=== PATIENT | female | born 1960 | race African-American/Black ===

== ENCOUNTER 2024-06-11 11:12 | Inpatient (IN) | payer MEDICAID ==
[~2024-06-11] VITALS: Ht 160 cm; Wt 52.6 kg
[2024-06-12] VITALS (10 sets, daily range): BP systolic 103–118; BP diastolic 64–68; PULSE 70–88; RESP 17–70; TEMP 92.9–99.2; O2SAT 95–96
[2024-06-12] MEDS ORDERED: MORPHINE SULFATE INJ 2 MG/ml SYRG IV PRN (01:45)
[2024-06-12] MEDS ORDERED: NITROGLYCERIN 0.4 MG SL TAB SL PRN (01:45)
[2024-06-12] MEDS ORDERED: MIRT-93 PO (01:56)
[2024-06-12] MEDS ORDERED: LOSA-534 PO (01:56)
[2024-06-12] MEDS ORDERED: SEVE800T8 PO (01:56)
[2024-06-12] MEDS ORDERED: LATA0.008 EACHEYE (01:56)
[2024-06-12] MEDS ORDERED: FEXO-226 PO (01:56)
[2024-06-12] MEDS ORDERED: AMLO1TAB21 PO (01:56)
[2024-06-12] MEDS ORDERED: ACET-1881 PO (01:56)
[2024-06-12] MEDS ORDERED: APIX2.5T PO (01:56)
[2024-06-12] MEDS ORDERED: SENN-58 PO (01:56)
[2024-06-12] MEDS ORDERED: LACTCAP PO (01:56)
[2024-06-12] MEDS ORDERED: LOPE2CAP PO (01:56)
[2024-06-12] MEDS ORDERED: LORA-1121 PO (01:56)
[2024-06-12] MEDS ORDERED: TRAM50TA2 PO (01:56)
[2024-06-12] MEDS ORDERED: ATOR40TA52 PO (01:56)
[2024-06-12] MEDS ORDERED: CLON0.2D6 PO (01:56)
[2024-06-12] MEDS ORDERED: VANCOMYCIN PER PHARMACY 0 MG IV SCH (02:00)
[2024-06-12] MEDS ORDERED: DEXTROSE (50%) 50ML SYRG IV PRN (02:00)
--- NOTE | 2024-06-12 02:13 | DVHHPRES ---
History of Present Illness Resident Creating Document: SENAIT FRAGOSO RESIDENT History of Present Illness Patient is 64-year-old female who transfer from [facility] with past medical history of chronic CVA, hypertension, diabetes, chronic AFib, ESRD on hemodialysis, brought to the hospital for further evaluation of requiring cardiology evaluation for LOUIE and infectious disease evaluation. In [facility], patient was came with a chief: Fever, patient found to have bacteremia with a step epidermis, multiple repeat blood culture were done in consecutive days, all cultures came positive for bacteremia, treated with vancomycin and Invanz, however patient continued to have bacteremia therefore patient was transferred to [facility] for further evaluation possible requiring LOUIE and infectious disease evaluation. Patient was also on hemodialysis, initially access was achieved with right IJ however was not functioning, patient underwent right arm AV fistula, currently patient has left IJ access for possible dialysis, not underwent dialysis in last 5-7 days as per EMR. At the time of evaluation patient is alert however not oriented to time place and person, not able to provide information. All information obtained from EMR. No any other new complaints. PMH: Chronic CVA, hypertension, diabetes mellitus, chronic AFib, ESRD on hemodialysis Active medication at [facility]: Amlodipine 2.5 mg p.o. daily, losartan 50 mg p.o. b.i.d., ferrous sulfate 325 mg p.o. b.i.d., docusate 100 mg p.o. b.i.d., clonidine 0.2 mg p.o. q.12, Coreg 12.5 mg p.o. b.i.d., atorvastatin 40 mg p.o. once daily, Eliquis 2.5 mg p.o. b.i.d., insulin sliding scale, sevelamer 800 mg p.o. t.i.d., p.r.n. ondansetron and vancomycin. Allergies none Social history not able to obtain Family unknown Review of Systems Review of Systems Patient is alert however poor historian not able to provide proper history. \review of systems not able to obtain Allergies: Coded Allergies: NO KNOWN ALLERGIES (Unverified , 06/12/24) Medications Current Medications Medications Dose Ordered Sig/William Route Start Time Stop Time Status Last Admin Dose Admin Nitroglycerin 0.4 mg Q5MINP PRN SL 06/12/24 01:45 Morphine Sulfate 2 mg Q30M PRN IV 06/12/24 01:45 Meropenem 50 ml @ 17 mls/hr DAILY@2200 IV 06/12/24 22:00 Vancomycin HCl 0 ml @ 0 mls/hr UD IV 06/12/24 02:00 UNV Levetiracetam 500 mg BID PO 06/12/24 10:00 Atorvastatin Calcium 40 mg HS PO 06/12/24 22:00 Apixaban 2.5 mg BID PO 06/12/24 10:00 Losartan Potassium 50 mg DAILY PO 06/12/24 10:00 Amlodipine Besylate 2.5 mg DAILY PO 06/12/24 10:00 Diagnostic Test (Pha) 1 strip ACHS 06/12/24 07:00 Insulin Human Regular ACHS SC 06/12/24 07:00 Dextrose 50 ml UD PRN IV 06/12/24 02:00 Sevelamer HCl 800 mg TIDWM PO 06/12/24 08:00 Ondansetron HCl 4 mg Q4HPRN PRN IV 06/12/24 02:15 UNV Zirconium Oxide 10 gm TID PO 06/12/24 06:00 UNV Exam Vital Signs Vital Signs Date Time Temp Pulse Resp B/P (MAP) Pulse Ox O2 Delivery O2 Flow Rate FiO2 06/12/24 01:26 93.6 70 18 103/64 (77) 96 93.6 General Appearance: Alert, No acute distress HEENT: Atraumatic, PERRLA Respiratory: Clear to auscultation Cardiovascular: Regular rate, Normal S1, Normal S2 Abdominal: Normal bowel sounds Extremities: No clubbing, No cyanosis Skin: No rashes, No breakdown Neuro: Normal speech, Normal tone, Reflexes 2+ Psych/Mental Status: Other (Alert, protecting airway, not oriented to time place person) Assessment/Plan Assessment/Plan Staph epidermidis bacteremia Sepsis Acute metabolic encephalopathy Hypothermia Rule out infective endocarditis ESRD on hemodialysis Seizure Hyperkalemia Chronic AFib, no RVR Anemia of chronic disease Iron-deficiency Subclinical hypothyroidism Secondary coagulopathy Stool occult positive History of hypertension Diabetes mellitus type 2 -IV antibiotic with meropenem and vancomycin, repeat blood culture, infectious Disease consultation, cardiology consultation for possible LOUIE to evaluate infective endocarditis. -nephrology consultation for continuation of hemodialysis -given pulmonary vascular congestion, fluid has been not given. -upper extremity DVT results as pending, as per records patient had DVT in upper extremity with clot extending into heart, currently on Eliquis 2.5 mg b.i.d. for DVT and AFib. -AFib without RVR: Continue Eliquis 2.5 mg p.o. b.i.d., cautiously use, given low hemoglobin and stool positive -new onset seizure during past hospitalization, continue Keppra 500 mg p.o. b.i.d. -insulin sliding scale -continued home medication amlodipine 2.5 mg p.o. daily, losartan 50 mg p.o. daily, atorvastatin 40 mg p.o. daily. Goals of care not able to discussed given patient mental status, family were called not able to reach out. Plan discussed with Dr. Fonseca Plan discussed with: Patient, Other My Orders Orders - SENAIT FRAGOSO RESIDENT Procedure Category Date Status Time Admit ADMIT 06/12/24 Transmitted 01:44 Nitroglycerin PHA 06/12/24 In Process Sublingual (Ntrostat 01:45 Morphine Sulfate PHA 06/12/24 In Process Injection 01:45 Oxygen By Nasal RT 06/12/24 Transmitted Cannula 01:44 Stat Ekg For Chest [facility] 06/12/24 In Process Pain 01:44 Notify Md Of Changes [facility] 06/12/24 In Process From Base 01:44 Chocolate Finisher For [facility] 06/12/24 In Process 24 Hours 01:44 Emergency Dysrhythmia [facility] 06/12/24 In Process Protocol 01:44 Rhythm Strips Once [facility] 06/12/24 In Process Every Shift 01:44 B-Type Natriuretic LAB 06/12/24 Logged Peptide 01:44 Complete Blood Count LAB 06/12/24 Logged 01:44 Comprehensive LAB 06/12/24 Logged Metabolic Panel 01:44 Hemoglobin A1c LAB 06/12/24 Logged 01:44 Lipase LAB 06/12/24 Logged 01:44 PTPTT LAB 06/12/24 Logged 01:44 Thyroid Stimulating LAB 06/12/24 Logged Hormone 01:44 Troponin-I Hs LAB 06/12/24 Logged 01:44 Urinalysis LAB 06/12/24 Logged 01:44 Chest Xray 1 View XY 06/12/24 Logged 01:[address] 06/12/24 Logged 01:44 Pt Request For Service PT 06/12/24 Logged 01:44 Troponin-I Hs LAB 06/12/24 Logged 02:44 Troponin-I Hs LAB 06/12/24 Logged 04:44 Iron Panel LAB 06/12/24 Logged 01:44 * Cardiology Consult CONS 06/12/24 Transmitted 01:44 *Dr. [facility] CONS 06/12/24 Transmitted -[place] 01:44 * Infectious Berta- CONS 06/12/24 Transmitted [facility] 01:44 * Wound Consult CONS 06/12/24 Transmitted 01:48 * Dietary Consult CONS 06/12/24 Transmitted 01:48 * Certified Diabetes Educator CONS 06/12/24 Transmitted Consult 01:48 Admit ADMIT 06/12/24 Transmitted 01:48 Mrsa Screen PATRICIO 06/12/24 Logged 01:48 Meropenem 500mg Ivpb PHA 06/12/24 In Process (Merrem 500mg/Ns) 22:00 Meropenem 1gm Ivpb PHA 06/12/24 In Process (Merrem 1gm/ Ns) 02:00 Vancomycin Per PHA 06/12/24 Pending Pharmacy 02:00 Levetiracetam Tablet PHA 06/12/24 In Process (Keppra Tablet) 10:00 Renal DIET 06/12/24 Transmitted Standard(2gna,3gk,Lopho) Breakfast Atorvastatin (Lipitor) PHA 06/12/24 In Process 22:00 Bi Lat Upper Dvt US 06/12/24 Logged 01:48 Apixaban (Eliquis) PHA 06/12/24 In Process 10:00 Losartan Tablet PHA 06/12/24 In Process (Cozaar Tablet) 10:00 Amlodipine Tablet PHA 06/12/24 In Process (Norvasc Tablet) 10:00 Glucose Blood PHA 06/12/24 In Process (Accu-Chek Comfort 07:00 Insulin R (Human) PHA 06/12/24 In Process (Insulin R) 07:00 Dextrose 50% Syringe PHA 06/12/24 In Process 02:00 Blood Culture PATRICIO 06/12/24 Logged 01:53 Covid19 Antigen Diann LAB 06/12/24 Logged Ammonia LAB 06/12/24 Logged 01:53 Sevelamer (Renagel) PHA 06/12/24 In Process 08:00 Magnesium LAB 06/12/24 Logged 01:44 Phosphorus LAB 06/12/24 Logged 01:44 Electrocardigram EKG 06/12/24 Logged 01:55 Vancomycin 1.5gm/300ml PHA 06/12/24 In Process 02:15 Ondansetron Hcl PHA 06/12/24 Logged (Zofran) 02:15 Sodium Zirconium PHA 06/12/24 Logged Cyclosilicate 06:00 Date of Service: Jun 12, 2024 Billing Provider: TYRON FONSECA MD Common Visit Codes: [id number] INP/OBS CARE (HIGH) SENAIT FRAGOSO RESIDENT Jun 12, 2024 02:13 TYRON FONSECA MD Jun 12, 2024 10:12
[2024-06-12] MEDS ORDERED: ONDANSETRON HCL 4 MG/2 ML VIAL IV PRN (02:15)
[2024-06-12 03:31] LABS: Basophils # (auto) 0.1 10 ^3/uL (0-0.2); Basophils % (auto) 1.3 % (0.0-2.0); Eosinophils # (auto) 0.3 10 ^3/uL (0-0.8); Eosinophils % (auto) 4.7 % (0.0-7.0); Hemoglobin 7.9 g/dL (12.2-16.2); Lymphocytes # (auto) 1.4 10 ^3/uL (0.4-5.4); Lymphocytes % (auto) 20.5 % (10.0-50.0); Mean Corpuscular Hemoglobin 28.8 pg (28.0-32.0); Mean Corpuscular Hgb Conc. 31.6 g/dL (32.0-36.0); Mean Corpuscular Volume 91.1 fL (80.0-100.0); Monocytes # (auto) 0.4 10 ^3/uL (0-1.3); Monocytes % (auto) 6.2 % (0.0-12.0); Neutrophils # (auto) 4.6 10 ^3/uL (1.6-8.6); Neutrophils % (auto) 67.3 % (37.0-80.0); Nucleated Red Blood Cells % 0.2 %; Platelet Count (auto) 132 10^3/uL (140-450); Red Blood Cells 2.74 10^6/uL (4.0-5.20); Red Cell Distribution Width 16.7 % (11.8-14.3); White Blood Cell 6.8 10^3/uL (4.4-10.8)
[2024-06-12 03:43] LABS: Alkaline Phosphatase 99 U/L (46-116); Anion Gap 9 (5-15); BUN/Creatinine Ratio 7.8 (10.0-20.0); Carbon Dioxide 24 mmol/L (20-31); Glucose 80 mg/dL (74-106); Lipase 22 U/L (12-53); Magnesium 2.6 mg/dL (1.6-2.6); Sodium 140 mmol/L (136-145)
[2024-06-12 03:44] LABS: INR 1.18 (0.9-1.15); Partial Thromboplastin Time 38.9 SEC (24.5-34.5); Prothrombin Time 12.3 sec (9.3-11.8); Total Protein 5.8 g/dL (5.7-8.2)
[2024-06-12 03:45] LABS: % Iron Saturation 44.8 % (15-50)
[2024-06-12 03:49] LABS: Blood Urea Nitrogen 68 mg/dL (9-23); Chloride 107 mmol/L (98-107); Potassium 5.4 mmol/L (3.5-5.1)
[2024-06-12 03:50] LABS: Alanine Aminotransferase < 9 U/L (7-40); Albumin 2.4 g/dL (3.2-4.8); Bilirubin, Total < 0.2 mg/dL (0.2-1.0); Calcium 8.6 mg/dL (8.7-10.4); Phosphorus 6.2 mg/dL (2.4-5.1)
[2024-06-12] MEDS: levETIRAcetam 500 MG TAB PO ONE (03:59)
[2024-06-12] MEDS: MEROPENEM 1GM IVPB 50 ML IV ONE (03:59)
[2024-06-12 04:25] LABS: Aspartate Aminotransferase 16 U/L (13-40)
--- NOTE | 2024-06-12 05:49 | DVH ---
CHEST RADIOGRAPH Indication: sepsis Technique: Single frontal view of the chest was obtained COMPARISON: 06/11/2024 FINDINGS: Lines and Tubes: Right HERO graft and left central venous catheter in satisfactory position. Lungs: Congestion Pleura: No effusion. No pneumothorax. Cardiomediastinal contours: Cardiomegaly Bones: Unremarkable IMPRESSION: Mild congestion.
[2024-06-12] MEDS: SODIUM ZIRCONIUM CYCL 10 GM PAK PO SCH (05:59)
[2024-06-12] MEDS ORDERED: SODIUM ZIRCONIUM CYCL 10 GM PAK PO PRN (06:00)
[2024-06-12 06:01] LABS: COVID19 ANTIGEN SOFIA FIA NEGATIVE (NEGATIVE); Rapid Influenza A Negative (Negative); Rapid Influenza B Negative (Negative)
[2024-06-12] MEDS: InsuLIN REG 1unit/0.01ml Soln (100units/ml) SC SCH (06:01)
[2024-06-12] MEDS: ACCU-CHEK COMFORT CURVE STRIP VI SCH (06:19)
[2024-06-12 07:27] LABS: Free T3 1.53 pg/mL (2.3-4.2); Free T4 (Free Thyroxine) 0.97 ng/dL (0.89-1.76)
[2024-06-12] MEDS: SEVELAMER 800 MG TAB PO SCH (08:00)
--- NOTE | 2024-06-12 09:29 | DVH ---
EXAM: CT HEAD WITHOUT CONTRAST HISTORY: altered mental status COMPARISON: None TECHNIQUE: Axial images were obtained and reformatted in coronal and sagittal planes. All CT scans at this medical facility are performed using dose modulation techniques as appropriate t o a performed exam including the following: Automated exposure control was utilized; adjustment of th e MA and/or KV according to patient size; and use of iterative reconstruction technique. CT Dose: CTDI volume is 48.54 mGy. Dose-length product is 817.63 mGy*cm FINDINGS: Supratentorial Region: Small area of altered signal in the left occipital lobe central hypoattenuatio n and peripheral gyriform ribbonlike hyperdensity. Old infarcts are seen in the right frontal topete radiata and centrum semiovale. A small old infarct with encephalomalacia noted in the right upper pa rietal lobe. Confluent white matter hypoattenuating foci are noted bilaterally, which typically refle ct chronic microvascular ischemic changes. Posterior Fossa: No acute abnormality. Brainstem: Unremarkable. Sellar/Suprasellar Region: Unremarkable. Ventricles, Cisterns, Sulci: Mildly prominent reflecting volume loss. Small amount of hemorrhagic ma terial in the occipital horn of the left lateral ventricle can not be ruled out. Orbits: Unremarkable. Paranasal Sinuses: Unremarkable. Mastoid Air Cells: Small left mastoid effusion. Vasculature: Intracranial arterial calcified plaque formation noted. Bones/Soft Tissues: No acute abnormality. Other: None. IMPRESSION: 1. Age-indeterminate left occipital infarcts with hemorrhagic transformation versus laminar necrosis. Recommend further evaluation with MRI. Small amount of hemorrhagic material in the occipital horn o f the left lateral ventricle can not be ruled out. 2. Old infarcts are seen in the right frontoparietal lobes. 3. Moderate global cortical atrophy and chronic microvascular ischemic changes. 4. Atherosclerotic calcification of the intracranial arteries noted. 5. Small left mastoid effusion.
--- NOTE | 2024-06-12 09:33 | DVHINCON2 ---
[facility] 06/12/24 0933: Date Seen: Jun 12, 2024 Referring Physician MD Esther Reason for Consultation Staph epidermidis bacteremia rule out subacute endocarditis History of Present Illness This is a 64-year-old female who presented transferred from [facility] for higher level of care. At time of assessment the patient was found A&O x2. Most of the information retrieved from records. It appears the patient presented to the aforementioned facility with complaints of pyrexia and found with persistent bacteremia on blood cultures with Staph epidermidis for which she was treated with vancomycin and Invanz. She was transferred to our facility for Infectious Disease evaluation and possible need of a transesophageal echocardiogram to rule out subacute infective endocarditis. The patient is end- stage renal disease on hemodialysis with an initial access achieved through the right IJ which malfunctioned and subsequent renal replacement therapy via left subclavian dialysis catheter and eventual right upper arm AV fistula. Significant medical history includes paroxysmal atrial fibrillation on low-dose Eliquis, diabetes mellitus type 2, history of CVA, hypertension, dyslipidemia, anemia, and ESRD on HD. Past Medical History Past medical history reviewed. No other significant than mentioned above. Past Surgical History Right/left IJ Right upper arm AV fistula Family History: Patient reports no known family medical history. Family History Unable to obtain family history at this time. Social History Unable to obtain social history at this time. Allergies: Coded Allergies: NO KNOWN ALLERGIES (Unverified , 06/12/24) Home Meds Reported Medications Tramadol Hcl (Tramadol Hcl) 50 Mg Tab, 50 MG PO Q6HP PRN for PAIN SCALE 1 THRU 6, MG 06/12/24 Lorazepam (ATIVAN TABLET) 0.5 Mg Tb, 1 TAB PO TID PRN for ANXIETY, #90 TAB 06/12/24 Latanoprost (LATANOPROST) 0.005 % Rachel, 1 DROP EACHEYE QPM, #7.5 ML 3 Refills 06/12/24 Senna (Senokot) 8.6 Mg Tab, 1 TAB PO BID, #40 TAB 06/12/24 Losartan Potassium (Losartan Potassium) 50 Mg Tab, 50 MG PO DAILY for 30 Days, MG 06/12/24 Loperamide Hcl (Loperamide Hcl) 2 Mg Cap, 2 MG PO, MG 06/12/24 Mirtazapine (Remeron) 15 Mg Tab, 1 TAB PO QPM, #30 TAB 1 Refill 06/12/24 Atorvastatin Calcium (ATORVASTATIN CALCIUM) 40 Mg Tab, 1 TAB PO DAILY, #30 TAB 5 Refills 06/12/24 Sevelamer Carbonate (Renvela) 800 Mg Tab, 800 MG PO, TAB 06/12/24 Clonidine Hydrochloride (Clonidine Hcl) 0.2 Mg/24 Hr Dis, 0.2 MG PO QWEEKLY for 30 Days, MG 06/12/24 Amlodipine Besylate (Amlodipine Besylate) 2.5 Mg Tab, 1 TAB PO DAILY, #30 TAB 5 Refills 06/12/24 Lactobacillus (Acidophilus Probiotic) 1 Mg Tab, 1 MG PO, TAB 06/12/24 Fexofenadine Hcl (Fexofenadine Hcl) 60 Mg Tab, 60 MG PO BID for 30 Days, MG 06/12/24 Apixaban Base (ELIQUIS) 2.5 Mg Tab, 2.5 MG PO BID, TAB 06/12/24 Acetaminophen (Acetaminophen) 325 Mg Tab, 650 MG PO Q6HP PRN for MILD PAIN for 30 Days, MG 0 Refills 06/12/24 Home Meds Home medications reviewed. Current Medications Current Medications Medications (Trade) Dose Ordered Sig/William Route PRN Reason Start Time Stop Time Status Last Admin Nitroglycerin (Ntrostat Sublingual) 0.4 mg Q5MINP PRN SL FOR CHEST PAIN 06/12/24 01:45 Morphine Sulfate 2 mg Q30M PRN IV FOR CHEST PAIN 06/12/24 01:45 Meropenem 50 ml @ 17 mls/hr DAILY@2200 IV 06/12/24 22:00 Vancomycin HCl 0 ml @ 0 mls/hr UD IV 06/12/24 02:00 UNV Levetiracetam (Keppra Tablet) 500 mg BID PO 06/12/24 10:00 Atorvastatin Calcium (Lipitor) 40 mg HS PO 06/12/24 22:00 Apixaban (Eliquis) 2.5 mg BID PO 06/12/24 10:00 Losartan Potassium (Cozaar Tablet) 50 mg DAILY PO 06/12/24 10:00 Amlodipine Besylate (Norvasc Tablet) 2.5 mg DAILY PO 06/12/24 10:00 Diagnostic Test (Pha) (Accu-Chek Comfort Curve T) 1 strip ACHS 06/12/24 07:00 06/12/24 06:19 Insulin Human Regular (InsuLIN R) ACHS SC 06/12/24 07:00 Dextrose 50 ml UD PRN IV Blood Sugar LESS THAN 60 06/12/24 02:00 Sevelamer HCl (Renagel) 800 mg TIDWM PO 06/12/24 08:00 Ondansetron HCl (Zofran) 4 mg Q4HPRN PRN IV NAUSEA / VOMITING 06/12/24 02:15 Zirconium Oxide (Lokelma) 10 gm TID PRN PO HYPERKALEMIA 06/12/24 06:00 06/12/24 05:22 DC Zirconium Oxide (Lokelma) 10 gm TID PO 06/12/24 05:30 06/14/24 05:59 06/12/24 05:59 Ferrous Sulfate 325 mg ONCE PO 06/12/24 08:00 UNV Review of Systems Constitutional: Generalized weakness, anorexia Ears, Nose, & Throat: No symptom reported Eyes: No symptom reported Neurological: ALOC Pulmonary/Respiratory: No symptom reported Cardiovascular: No symptom reported Gastrointestinal: No symptom reported Genitourinary: No symptom reported Musculoskeletal: No symptom reported Skin: No symptom reported Psychiatric: No symptom reported Endocrine: No symptom reported Hemotologic/Lymphatic: No symptom reported Vital Signs Vital Signs Date Time Temp Pulse Resp B/P (MAP) Pulse Ox O2 Delivery O2 Flow Rate FiO2 06/12/24 06:15 93.7 93.7 06/12/24 05:00 76 17 110/67 (81) 96 06/12/24 01:26 Room Air* 0 21 Physical Exam General Appearance: Chronically ill. A&O x2. In no acute distress Head Exam: Normal inspection Neck Exam: Normal inspection. Non-tender. Normal alignment Pulmonary/Respiratory: Chest non-tender. Imaged bilateral breath sounds Cardiovascular/Chest: Regular rate and rhythm. S1, S2. Sinus rhythm with prolonged QTC and. No murmurs. No JVD. Peripheral Pulses: 2+ Radial (R). 2+ Radial (L). 2+ Pedal (R). 2+ Pedal (L) Abdominal Exam: Normal bowel sounds. Soft. Ankle Exam: Negative ankle edema Lower extremities: Negative lower extremity edema Neuro/Mental Status: A&O x2. Alert Thoughts/Psych: Unable to assess at this time Appearance: In no acute distress Skin Exam: Normal inspection. Normal color. Warm. Dry Labs/Diagnostic Data Labs Test 06/12/24 07:00 06/12/24 05:58 06/12/24 04:00 06/12/24 02:50 Range/Units Troponin I High Sensitivity 7 </=34 ng/L POC Glucose 106 70-106 mg/dl Influenza Type A Antigen Negative Negative Influenza Type B Antigen Negative Negative SARS-CoV-2 Antigen (Rapid) Negative NEGATIVE White Blood Count 6.8 4.4-10.8 10^3/uL Red Blood Count 2.74 L 4.0-5.20 10^6/uL Hemoglobin 7.9 L 12.2-16.2 g/dL Hematocrit 25.0 L 36.0-46.0 % Mean Corpuscular Volume 91.1 80.0-100.0 fL Mean Corpuscular Hemoglobin 28.8 28.0-32.0 pg Mean Corpuscular Hemoglobin Concent 31.6 L 32.0-36.0 g/dL Red Cell Distribution Width 16.7 H 11.8-14.3 % Platelet Count 132 L 140-450 10^3/uL Mean Platelet Volume 9.3 6.9-10.8 fL Neutrophils (%) (Auto) 67.3 37.0-80.0 % Lymphocytes (%) (Auto) 20.5 10.0-50.0 % Monocytes (%) (Auto) 6.2 0.0-12.0 % Eosinophils (%) (Auto) 4.7 0.0-7.0 % Basophils (%) (Auto) 1.3 0.0-2.0 % Neutrophils # (Auto) 4.6 1.6-8.6 10 ^3/uL Lymphocytes # (Auto) 1.4 0.4-5.4 10 ^3/uL Monocytes # (Auto) 0.4 0-1.3 10 ^3/uL Eosinophils # (Auto) 0.3 0-0.8 10 ^3/uL Basophils # (Auto) 0.1 0-0.2 10 ^3/uL Nucleated Red Blood Cells 0.2 % Prothrombin Time 12.3 H 9.3-11.8 sec Prothrombin Time INR 1.18 H 0.9-1.15 Activated Partial Thromboplast Time 38.9 H 24.5-34.5 SEC Sodium Level 140 136-145 mmol/L Potassium Level 5.4 H 3.5-5.1 mmol/L Chloride Level 107 98-107 mmol/L Carbon Dioxide Level 24 20-31 mmol/L Anion Gap 9 5-15 Blood Urea Nitrogen 68 H 9-23 mg/dL Creatinine 8.68 H 0.550-1.02 mg/dL Glomerular Filtration Rate Calc 5 >90 mL/min BUN/Creatinine Ratio 7.8 L 10.0-20.0 Serum Glucose 80 74-106 mg/dL Hemoglobin A1c 5.6 <5.7 % A1C Calcium Level 8.6 L 8.7-10.4 mg/dL Phosphorus Level 6.2 H 2.4-5.1 mg/dL Magnesium Level 2.6 1.6-2.6 mg/dL Iron Level 56 50-170 ug/dL Total Iron Binding Capacity 125 L 250-425 ug/dL Percent Iron Saturation 44.8 15-50 % Total Bilirubin < 0.2 L 0.2-1.0 mg/dL Aspartate Amino Transferase (AST) 16 13-40 U/L Alanine Aminotransferase (ALT) < 9 7-40 U/L Alkaline Phosphatase 99 46-116 U/L Ammonia 15 11-32 umol/L B-Type Natriuretic Peptide 288.82 0-100 pg/mL Total Protein 5.8 5.7-8.2 g/dL Albumin 2.4 L 3.2-4.8 g/dL Lipase 22 12-53 U/L Thyroid Stimulating Hormone (TSH) 8.89 H 0.55-4.78 uIU/mL Free Thyroxine (T4) Calculated 0.97 0.89-1.76 ng/dL Free Triiodothyronine (T3) pg/mL 1.53 L 2.3-4.2 pg/mL Assessment Sepsis/bacteremia rule out subacute endocarditis Paroxysmal atrial fibrillation, stage III, now NSR Nonocclusive/superficial thrombus to the right upper extremity Acute on chronic anemia status post 2 unit PRBC/Hemoccult positive Acute metabolic encephalopathy Subclinical hypothyroidism HX of CVA on antiplatelet therapy Dyslipidemia Diabetes mellitus type 2 ESRD on HD Plan/Recommendation (Dr. Baker) The patient with bacteremia has been scheduled for a transesophageal echocardiogram at first available on 06/14/2024. Attempted to call next of kin/son Celio Palma with no success . In the meantime, continue blood cultures, antibiotic therapy, an infectious disease consultation. The patient is currently on low-dose Eliquis for reported history of atrial fibrillation, currently in a sinus rhythm. Obtain T&S given recent history of acute on chronic anemia with positive FOBT undergoing blood transfusions. Monitor ECG changes and notify. Thank you for allowing us to participate in this patient's care. Please call if you have any questions or concerns. This medical document was created using an electronic medical record system with voice recognition software and computerized dictation system. Although this document has been carefully reviewed, there might still be some phonetic and typographical errors. Occasional wrong-word or ``sound-alike substitutions may have occurred due to the inherent limitations of voice recognition software. These areas are purely typographical due to imperfections of the software programs and do not reflect any compromise in the patient's medical care. Please read the chart carefully and recognize, using context, where these substitutions have occurred. Plan discussed with: Patient, Other NYHA Physical activity limitations: NA Date of Service: Jun 12, 2024 Billing Provider: [facility] Cardiology Common Codes: [id number] INP/OBS CARE (High) AMY BAKER MD 06/12/24 1421: Family History: Patient reports no known family medical history. Allergies: Coded Allergies: NO KNOWN ALLERGIES (Unverified , 06/12/24) Home Meds Reported Medications Tramadol Hcl (Tramadol Hcl) 50 Mg Tab, 50 MG PO Q6HP PRN for PAIN SCALE 1 THRU 6, MG 06/12/24 Lorazepam (ATIVAN TABLET) 0.5 Mg Tb, 1 TAB PO TID PRN for ANXIETY, #90 TAB 06/12/24 Latanoprost (LATANOPROST) 0.005 % Rachel, 1 DROP EACHEYE QPM, #7.5 ML 3 Refills 06/12/24 Senna (Senokot) 8.6 Mg Tab, 1 TAB PO BID, #40 TAB 06/12/24 Losartan Potassium (Losartan Potassium) 50 Mg Tab, 50 MG PO DAILY for 30 Days, MG 06/12/24 Loperamide Hcl (Loperamide Hcl) 2 Mg Cap, 2 MG PO, MG 06/12/24 Mirtazapine (Remeron) 15 Mg Tab, 1 TAB PO QPM, #30 TAB 1 Refill 06/12/24 Atorvastatin Calcium (ATORVASTATIN CALCIUM) 40 Mg Tab, 1 TAB PO DAILY, #30 TAB 5 Refills 06/12/24 Sevelamer Carbonate (Renvela) 800 Mg Tab, 800 MG PO, TAB 06/12/24 Clonidine Hydrochloride (Clonidine Hcl) 0.2 Mg/24 Hr Dis, 0.2 MG PO QWEEKLY for 30 Days, MG 06/12/24 Amlodipine Besylate (Amlodipine Besylate) 2.5 Mg Tab, 1 TAB PO DAILY, #30 TAB 5 Refills 06/12/24 Lactobacillus (Acidophilus Probiotic) 1 Mg Tab, 1 MG PO, TAB 06/12/24 Fexofenadine Hcl (Fexofenadine Hcl) 60 Mg Tab, 60 MG PO BID for 30 Days, MG 06/12/24 Apixaban Base (ELIQUIS) 2.5 Mg Tab, 2.5 MG PO BID, TAB 06/12/24 Acetaminophen (Acetaminophen) 325 Mg Tab, 650 MG PO Q6HP PRN for MILD PAIN for 30 Days, MG 0 Refills 06/12/24 Plan/Recommendation pt needs neuro eval and assessment for abnormal head ct consider LOUIE once more stable cont abx ID consult pending poor prognosis Plan discussed with: Other (rn) MAY CARSON Jun 12, 2024 09:33 AMY BAKER MD Jun 12, 2024 14:21
[2024-06-12] MEDS ORDERED: APIXABAN 2.5 MG TAB PO SCH (10:00)
--- NOTE | 2024-06-12 10:47 | DVHPN2 ---
Reviewed: Care Plan, H&P, Labs, Medications, Previous Orders, Radiology Changes from previous H/P or p: No Changes Objective Vitals Vital Signs Date Time Temp Pulse Resp B/P (MAP) Pulse Ox O2 Delivery O2 Flow Rate FiO2 06/12/24 09:00 94.3 71 18 115/68 (84) 96 94.3 06/12/24 01:26 Room Air* 0 21 Intake/Output Intake and Output 06/12/24 07:00 Intake Total 350 ml Output Total 0 ml Balance 350 ml Intake Oral 300 ml IV Total 50 ml Output Urine Total 0 ml Medications Current Medications Medications Dose Ordered Sig/William Route Start Time Stop Time Status Last Admin Dose Admin Nitroglycerin 0.4 mg Q5MINP PRN SL 06/12/24 01:45 Morphine Sulfate 2 mg Q30M PRN IV 06/12/24 01:45 Meropenem 50 ml @ 17 mls/hr DAILY@2200 IV 06/12/24 22:00 Vancomycin HCl 0 ml @ 0 mls/hr UD IV 06/12/24 02:00 Levetiracetam 500 mg BID PO 06/12/24 10:00 Atorvastatin Calcium 40 mg HS PO 06/12/24 22:00 Losartan Potassium 50 mg DAILY PO 06/12/24 10:00 Amlodipine Besylate 2.5 mg DAILY PO 06/12/24 10:00 Diagnostic Test (Pha) 1 strip ACHS 06/12/24 07:00 06/12/24 06:19 1 STRIP Insulin Human Regular ACHS SC 06/12/24 07:00 Dextrose 50 ml UD PRN IV 06/12/24 02:00 Sevelamer HCl 800 mg TIDWM PO 06/12/24 08:00 Ondansetron HCl 4 mg Q4HPRN PRN IV 06/12/24 02:15 Zirconium Oxide 10 gm TID PO 06/12/24 05:30 06/14/24 05:59 06/12/24 05:59 10 GM Laboratory Results Laboratory Tests 06/12/24 02:50 Chemistry Test 06/12/24 02:50 Albumin 2.4 g/dL (3.2-4.8) L Calcium Level 8.6 mg/dL (8.7-10.4) L Magnesium Level 2.6 mg/dL (1.6-2.6) Phosphorus Level 6.2 mg/dL (2.4-5.1) H Total Protein 5.8 g/dL (5.7-8.2) Coagulation Test 06/12/24 02:50 Prothrombin Time 12.3 sec (9.3-11.8) H Prothrombin Time INR 1.18 (0.9-1.15) H Activated Partial Thromboplast Time 38.9 SEC (24.5-34.5) H Lipid panel Test 06/12/24 02:50 Lipase 22 U/L (12-53) Cardiac Markers Test 06/12/24 02:50 B-Type Natriuretic Peptide 288.82 pg/mL (0-100) LFT Test 06/12/24 02:50 Alanine Aminotransferase (ALT) < 9 U/L (7-40) Alkaline Phosphatase 99 U/L (46-116) Aspartate Amino Transferase (AST) 16 U/L (13-40) Total Bilirubin < 0.2 mg/dL (0.2-1.0) L HgA1c, TSH Test 06/12/24 02:50 Hemoglobin A1c 5.6 % A1C (<5.7) Thyroid Stimulating Hormone (TSH) 8.89 uIU/mL (0.55-4.78) H Labs and/or images reviewed: Labs reviewed by me, Image(s) reviewed by me Assessment/Plan Assessment/Plan Patient was transferred from [facility] Sepsis/bacteremia rule out subacute endocarditis cardiology consult appreciated meropenem vancomycin, blood cultures pending Paroxysmal atrial fibrillation, stage III, now NSR, on low-dose failure Nonocclusive/superficial thrombus to the right upper extremity Acute on chronic anemia status post 2 unit PRBC/Hemoccult positive Acute metabolic encephalopathy Subclinical hypothyroidism HX of CVA on antiplatelet therapy age-indeterminate left occipital infarct Dyslipidemia Diabetes mellitus type 2 ESRD on HD Time spent 70 minutes Advanced care planning time 20 minutes Patient is full code MRI brain could not be done as the patient and her son unaware of whether she has any metal in the body Reviewed blood culture report from [facility]; It shows staph epidermidis which possibly is contamination Plan discussed with: Patient Date of Service: Jun 12, 2024 Billing Provider: JOSÉ HAWLEY MD Common Visit Codes: [id number] CARE 30-74 MIN JOSÉ HAWLEY MD Jun 12, 2024 10:47
[2024-06-12] MEDS: levETIRAcetam 500 MG TAB PO SCH (11:14)
[2024-06-12] MEDS: FERROUS SULFATE 325mg EC TAB PO ONE (11:14)
[2024-06-12] MEDS: LOSARTAN POTASSIUM 50 MG TAB PO SCH (11:15)
[2024-06-12] MEDS: amLODIPine BESYLATE 5 MG TAB PO SCH (11:16)
--- NOTE | 2024-06-12 11:41 | DVH ---
Bilateral upper extremity venous duplex Clinical History: DVT Comparison: None Findings: Duplex Doppler evaluation of the deep venous systems of the bilateral extremity from the common femor al veins to the popliteal veins including color Doppler and spectral/pulsed waveform analysis was per formed. Left internal jugular, subclavian, axillary, brachial, basilic, cephalic and radial veins demonstrate no evidence for deep vein thrombosis. The right internal jugular, subclavian veins demonstrate no filling defect. There is thrombus within the right axillary vein with no flow seen on one of the the color flow images, image 17. There is thr ombosis of the right upper extremity AV graft. The right radial and ulnar veins demonstrate color fl ow. There is pseudo aneurysmal formation with eccentric mural wall thrombus at the anastomotic site. Impression: 1. Findings consistent with thrombosis of the right upper extremity AV graft which likely extends to th e right axillary vein. Recommend vascular surgery consultation for further evaluation.
--- NOTE | 2024-06-12 15:40 | DVHINCON2 ---
Date of service: Jun 12, 2024 Reason for Consultation ESRD History of Present Illness 64 years old female with past medical history of ESRD on dialysis, diabetes, hypertension, CVA, AFib, presented with chief complaints fever to [facility] found to be persistently bacteremic with staph epidermidis patient transferred here for possible LOUIE and ID evaluation patient is currently being dialyzed via left IJ CVC patient missed several dialysis treatments patient is currently in no acute distress Past Medical History per hpi Allergies: Coded Allergies: NO KNOWN ALLERGIES (Unverified , 06/12/24) Home Meds Reported Medications Tramadol Hcl (Tramadol Hcl) 50 Mg Tab, 50 MG PO Q6HP PRN for PAIN SCALE 1 THRU 6, MG 06/12/24 Lorazepam (ATIVAN TABLET) 0.5 Mg Tb, 1 TAB PO TID PRN for ANXIETY, #90 TAB 06/12/24 Latanoprost (LATANOPROST) 0.005 % Rachel, 1 DROP EACHEYE QPM, #7.5 ML 3 Refills 06/12/24 Senna (Senokot) 8.6 Mg Tab, 1 TAB PO BID, #40 TAB 06/12/24 Losartan Potassium (Losartan Potassium) 50 Mg Tab, 50 MG PO DAILY for 30 Days, MG 06/12/24 Loperamide Hcl (Loperamide Hcl) 2 Mg Cap, 2 MG PO, MG 06/12/24 Mirtazapine (Remeron) 15 Mg Tab, 1 TAB PO QPM, #30 TAB 1 Refill 06/12/24 Atorvastatin Calcium (ATORVASTATIN CALCIUM) 40 Mg Tab, 1 TAB PO DAILY, #30 TAB 5 Refills 06/12/24 Sevelamer Carbonate (Renvela) 800 Mg Tab, 800 MG PO, TAB 06/12/24 Clonidine Hydrochloride (Clonidine Hcl) 0.2 Mg/24 Hr Dis, 0.2 MG PO QWEEKLY for 30 Days, MG 06/12/24 Amlodipine Besylate (Amlodipine Besylate) 2.5 Mg Tab, 1 TAB PO DAILY, #30 TAB 5 Refills 06/12/24 Lactobacillus (Acidophilus Probiotic) 1 Mg Tab, 1 MG PO, TAB 06/12/24 Fexofenadine Hcl (Fexofenadine Hcl) 60 Mg Tab, 60 MG PO BID for 30 Days, MG 06/12/24 Apixaban Base (ELIQUIS) 2.5 Mg Tab, 2.5 MG PO BID, TAB 06/12/24 Acetaminophen (Acetaminophen) 325 Mg Tab, 650 MG PO Q6HP PRN for MILD PAIN for 30 Days, MG 0 Refills 06/12/24 Current Medications Current Medications Medications (Trade) Dose Ordered Sig/William Route PRN Reason Start Time Stop Time Status Last Admin Nitroglycerin (Ntrostat Sublingual) 0.4 mg Q5MINP PRN SL FOR CHEST PAIN 06/12/24 01:45 Morphine Sulfate 2 mg Q30M PRN IV FOR CHEST PAIN 06/12/24 01:45 Meropenem 50 ml @ 17 mls/hr DAILY@2200 IV 06/12/24 22:00 Vancomycin HCl 0 ml @ 0 mls/hr UD IV 06/12/24 02:00 Levetiracetam (Keppra Tablet) 500 mg BID PO 06/12/24 10:00 06/12/24 11:14 Atorvastatin Calcium (Lipitor) 40 mg HS PO 06/12/24 22:00 Apixaban (Eliquis) 2.5 mg BID PO 06/12/24 10:00 06/12/24 09:37 DC Losartan Potassium (Cozaar Tablet) 50 mg DAILY PO 06/12/24 10:00 06/12/24 11:15 Amlodipine Besylate (Norvasc Tablet) 2.5 mg DAILY PO 06/12/24 10:00 06/12/24 11:16 Diagnostic Test (Pha) (Accu-Chek Comfort Curve T) 1 strip ACHS 06/12/24 07:00 06/12/24 11:37 Insulin Human Regular (InsuLIN R) ACHS SC 06/12/24 07:00 Dextrose 50 ml UD PRN IV Blood Sugar LESS THAN 60 06/12/24 02:00 Sevelamer HCl (Renagel) 800 mg TIDWM PO 06/12/24 08:00 06/12/24 11:12 Ondansetron HCl (Zofran) 4 mg Q4HPRN PRN IV NAUSEA / VOMITING 06/12/24 02:15 Zirconium Oxide (Lokelma) 10 gm TID PRN PO HYPERKALEMIA 06/12/24 06:00 06/12/24 05:22 DC Zirconium Oxide (Lokelma) 10 gm TID PO 06/12/24 05:30 06/14/24 05:59 06/12/24 15:08 Family History: Patient reports no known family medical history. Review of Systems poor historian H&P Exam Vital Signs/I&O Vital Sign Date Time Temp Pulse Resp B/P (MAP) Pulse Ox O2 Delivery O2 Flow Rate FiO2 06/12/24 12:32 96.9 73 18 112/65 (81) 95 96.9 06/12/24 01:26 Room Air* 0 21 Intake and Output 06/11/24 06/12/24 19:00 07:00 Intake Total 350 ml Output Total 0 ml Balance 350 ml Intake Oral 300 ml IV Total 50 ml Output Urine Total 0 ml Physical Exam General-not in any distress HEENT-normocephalic, Respiratory-fair air entry bilateral, no rhonchi, no wheeze [id number] heard, Abdominal-soft, nontender, nondistended Musculoskeletal-positive pedal edema, no calf tenderness Labs/Diagnostic Data Labs/Diagnostic Data Laboratory Tests Test 06/12/24 11:36 06/12/24 07:00 06/12/24 05:58 06/12/24 04:07 Range/Units POC Glucose 85 106 70-106 mg/dl Troponin I High Sensitivity 7 8 </=34 ng/L Test 06/12/24 04:00 06/12/24 02:50 Range/Units Influenza Type A Antigen Negative Negative Influenza Type B Antigen Negative Negative SARS-CoV-2 Antigen (Rapid) Negative NEGATIVE White Blood Count 6.8 4.4-10.8 10^3/uL Red Blood Count 2.74 L 4.0-5.20 10^6/uL Hemoglobin 7.9 L 12.2-16.2 g/dL Hematocrit 25.0 L 36.0-46.0 % Mean Corpuscular Volume 91.1 80.0-100.0 fL Mean Corpuscular Hemoglobin 28.8 28.0-32.0 pg Mean Corpuscular Hemoglobin Concent 31.6 L 32.0-36.0 g/dL Red Cell Distribution Width 16.7 H 11.8-14.3 % Platelet Count 132 L 140-450 10^3/uL Mean Platelet Volume 9.3 6.9-10.8 fL Neutrophils (%) (Auto) 67.3 37.0-80.0 % Lymphocytes (%) (Auto) 20.5 10.0-50.0 % Monocytes (%) (Auto) 6.2 0.0-12.0 % Eosinophils (%) (Auto) 4.7 0.0-7.0 % Basophils (%) (Auto) 1.3 0.0-2.0 % Neutrophils # (Auto) 4.6 1.6-8.6 10 ^3/uL Lymphocytes # (Auto) 1.4 0.4-5.4 10 ^3/uL Monocytes # (Auto) 0.4 0-1.3 10 ^3/uL Eosinophils # (Auto) 0.3 0-0.8 10 ^3/uL Basophils # (Auto) 0.1 0-0.2 10 ^3/uL Nucleated Red Blood Cells 0.2 % Prothrombin Time 12.3 H 9.3-11.8 sec Prothrombin Time INR 1.18 H 0.9-1.15 Activated Partial Thromboplast Time 38.9 H 24.5-34.5 SEC Sodium Level 140 136-145 mmol/L Potassium Level 5.4 H 3.5-5.1 mmol/L Chloride Level 107 98-107 mmol/L Carbon Dioxide Level 24 20-31 mmol/L Anion Gap 9 5-15 Blood Urea Nitrogen 68 H 9-23 mg/dL Creatinine 8.68 H 0.550-1.02 mg/dL Glomerular Filtration Rate Calc 5 >90 mL/min BUN/Creatinine Ratio 7.8 L 10.0-20.0 Serum Glucose 80 74-106 mg/dL Hemoglobin A1c 5.6 <5.7 % A1C Calcium Level 8.6 L 8.7-10.4 mg/dL Phosphorus Level 6.2 H 2.4-5.1 mg/dL Magnesium Level 2.6 1.6-2.6 mg/dL Iron Level 56 50-170 ug/dL Total Iron Binding Capacity 125 L 250-425 ug/dL Percent Iron Saturation 44.8 15-50 % Total Bilirubin < 0.2 L 0.2-1.0 mg/dL Aspartate Amino Transferase (AST) 16 13-40 U/L Alanine Aminotransferase (ALT) < 9 7-40 U/L Alkaline Phosphatase 99 46-116 U/L Ammonia 15 11-32 umol/L Troponin I High Sensitivity 9 </=34 ng/L B-Type Natriuretic Peptide 288.82 0-100 pg/mL Total Protein 5.8 5.7-8.2 g/dL Albumin 2.4 L 3.2-4.8 g/dL Lipase 22 12-53 U/L Thyroid Stimulating Hormone (TSH) 8.89 H 0.55-4.78 uIU/mL Free Thyroxine (T4) Calculated 0.97 0.89-1.76 ng/dL Free Triiodothyronine (T3) pg/mL 1.53 L 2.3-4.2 pg/mL Microbiology Date/Time Source Procedure Growth Status 06/12/24 02:15 Nose MRSA Screen - Final Complete Assessment ESRD on dialysis Sepsis bacteremia Hyperkalemia CVA Hypertension Recommendations Dialysis will be tomorrow Cardiology consult for LOUIE ID consult We will follow closely Resume home meds Plan discussed with: Other ERIN LIRA MD Jun 12, 2024 15:40
[2024-06-12] MEDS: ATORVASTATIN 20 MG TAB PO SCH (22:14)
[2024-06-12] MEDS: MEROPENEM 500MG IVPB 50 ML IV SCH (22:16)
[2024-06-13] VITALS (8 sets, daily range): BP systolic 108–130; BP diastolic 64–81; PULSE 78–92; RESP 16–18; TEMP 97.6–100; O2SAT 94–97
[2024-06-13 09:24] LABS: Basophils # (auto) 0.1 10 ^3/uL (0-0.2); Eosinophils # (auto) 0.2 10 ^3/uL (0-0.8); Hemoglobin 7.4 g/dL (12.2-16.2); Monocytes # (auto) 0.7 10 ^3/uL (0-1.3)
--- NOTE | 2024-06-13 09:27 | DVHPN2 ---
Reviewed: Care Plan, H&P, Labs, Medications, Previous Orders, Radiology Changes from previous H/P or p: No Changes Objective Vitals Vital Signs Date Time Temp Pulse Resp B/P (MAP) Pulse Ox O2 Delivery O2 Flow Rate FiO2 06/13/24 05:00 98.7 86 18 124/72 (89) 96 98.7 06/12/24 20:00 Room Air* 0 21 Intake/Output Intake and Output 06/13/24 07:00 Intake Total 1050 ml Output Total 0 ml Balance 1050 ml Intake Oral 1050 ml Output Urine Total 0 ml Medications Current Medications Medications Dose Ordered Sig/William Route Start Time Stop Time Status Last Admin Dose Admin Nitroglycerin 0.4 mg Q5MINP PRN SL 06/12/24 01:45 Morphine Sulfate 2 mg Q30M PRN IV 06/12/24 01:45 Meropenem 50 ml @ 17 mls/hr DAILY@2200 IV 06/12/24 22:00 06/12/24 22:16 17 MLS/HR Vancomycin HCl 0 ml @ 0 mls/hr UD IV 06/12/24 02:00 Levetiracetam 500 mg BID PO 06/12/24 10:00 06/12/24 22:14 500 MG Atorvastatin Calcium 40 mg HS PO 06/12/24 22:00 06/12/24 22:14 40 MG Losartan Potassium 50 mg DAILY PO 06/12/24 10:00 06/12/24 11:15 50 MG Amlodipine Besylate 2.5 mg DAILY PO 06/12/24 10:00 06/12/24 11:16 2.5 MG Diagnostic Test (Pha) 1 strip ACHS 06/12/24 07:00 06/13/24 06:27 1 STRIP Insulin Human Regular ACHS SC 06/12/24 07:00 Dextrose 50 ml UD PRN IV 06/12/24 02:00 Sevelamer HCl 800 mg TIDWM PO 06/12/24 08:00 06/12/24 18:04 800 MG Ondansetron HCl 4 mg Q4HPRN PRN IV 06/12/24 02:15 Zirconium Oxide 10 gm TID PO 06/12/24 05:30 06/14/24 05:59 06/13/24 06:27 10 GM Laboratory Results Laboratory Tests 06/12/24 02:50 Microbiology Microbiology Date/Time Source Procedure Growth Status 06/12/24 02:50 Blood Blood Culture - Preliminary NO GROWTH AFTER 24 HOURS OF INCUBATION. Resulted 06/12/24 02:15 Nose MRSA Screen - Final Complete Labs and/or images reviewed: Labs reviewed by me, Image(s) reviewed by me Assessment/Plan Assessment/Plan Patient was transferred from [facility] Sepsis/bacteremia rule out subacute endocarditis cardiology consult appreciated meropenem vancomycin, blood cultures negative, pending LOUIE Paroxysmal atrial fibrillation, stage III, now NSR, on low-dose Eliquis Nonocclusive/superficial thrombus to the right upper extremity Acute on chronic anemia status post 2 unit PRBC/Hemoccult positive, hemoglobin stable at 7.9 Acute metabolic encephalopathy Subclinical hypothyroidism HX of CVA 2021 on antiplatelet therapy age-indeterminate left occipital infarct Slurry speech secondary to stroke Dyslipidemia Diabetes mellitus type 2 ESRD on HD nephrology consult appreciated, patient getting dialysis today Recent hospital stay at [place] for three weeks for blocked right upper arm dialysis graft, was discharged home in [place] Left IJ dialysis access placed Time spent 50 minutes Advanced care planning time 20 minutes Patient is full code MRI brain could not be done as the patient and her son unaware of whether she has any metal in the body Reviewed blood culture report from [facility]; It shows staph epidermidis which possibly is contamination Repeat blood cultures in [facility] on 06/12 24 neg, continue antibiotics for the present Son Jair [phone] at bedside The patient lives alone in [place] Plan discussed with: Patient My Orders Orders - JOSÉ HAWLEY MD Procedure Category Date Status Time * Infectious [place]- CONS 06/12/24 Transmitted [facility] Conroy 10:46 Apply Barrier Cream WHIT 06/12/24 In Process 12:00 Date of Service: Jun 13, 2024 Billing Provider: JOSÉ HAWLEY MD Common Visit Codes: [id number] CARE 30-74 MIN JOSÉ HAWLEY MD Jun 13, 2024 09:27
[2024-06-13 09:28] LABS: Alkaline Phosphatase 92 U/L (46-116); Anion Gap 14 (5-15); BUN/Creatinine Ratio 8.4 (10.0-20.0); Carbon Dioxide 21 mmol/L (20-31); Potassium 4.7 mmol/L (3.5-5.1); Sodium 142 mmol/L (136-145)
[2024-06-13 09:29] LABS: Basophils % (auto) 1.4 % (0.0-2.0); Eosinophils % (auto) 2.1 % (0.0-7.0); Hematocrit 22.9 % (36.0-46.0); Lymphocytes % (auto) 24.1 % (10.0-50.0); Mean Corpuscular Hemoglobin 29.9 pg (28.0-32.0); Mean Corpuscular Hgb Conc. 32.4 g/dL (32.0-36.0); Mean Corpuscular Volume 92.2 fL (80.0-100.0); Neutrophils # (auto) 5.3 10 ^3/uL (1.6-8.6); Neutrophils % (auto) 64.4 % (37.0-80.0); Nucleated Red Blood Cells % 0.1 %; Platelet Count (auto) 149 10^3/uL (140-450); Red Blood Cells 2.49 10^6/uL (4.0-5.20); Red Cell Distribution Width 16.8 % (11.8-14.3); White Blood Cell 8.2 10^3/uL (4.4-10.8)
[2024-06-13 09:33] LABS: Alanine Aminotransferase < 9 U/L (7-40); Albumin 2.4 g/dL (3.2-4.8); Aspartate Aminotransferase 8 U/L (13-40); Bilirubin, Total 0.2 mg/dL (0.2-1.0); Calcium 8.3 mg/dL (8.7-10.4); Chloride 107 mmol/L (98-107); Glucose 73 mg/dL (74-106); Total Protein 5.5 g/dL (5.7-8.2)
[2024-06-13 09:35] LABS: Blood Urea Nitrogen 80 mg/dL (9-23)
--- NOTE | 2024-06-13 12:51 | DVH ---
EXAM: MRI BRAIN HEAD WO CONTRAST HISTORY: Rule out hemorrage COMPARISON: CT scan dated 06/12/2024 TECHNIQUE: MRI was performed utilizing multiple appropriate imaging planes and pulse sequences. FINDINGS: SUPRATENTORIAL REGION: Restricted diffusion noted in the left occipital lobe reflecting an acute/suba cute ischemia with a thin rim of peripheral hemorrhage. A subcentimeter focus of acute ischemia noted in the right frontal centrum semiovale. Moderate-sized acute ischemia noted in the right frontoparie flaco and right occipital lobes. POSTERIOR FOSSA: Unremarkable. BRAINSTEM: Unremarkable. SELLAR/SUPRASELLAR REGION: Unremarkable. VENTRICLES, CISTERNS, SULCI: Age-appropriate. ORBITS: Unremarkable. PARANASAL SINUSES: Unremarkable. MASTOID AIR CELLS: Small bilateral mastoid effusions are seen. VASCULATURE: Unremarkable. BONES/ SOFT TISSUES: Unremarkable. OTHER: None. IMPRESSION: 1. Multifocal bilateral supratentorial acute ischemia with hemorrhagic transformation in the left occ ipital lobe. 2. Small bilateral mastoid effusions.
--- NOTE | 2024-06-13 13:30 | DVHPN2 ---
Progress Note Date Seen: Jun 13, 2024 Medical Necessity Reason Pt with a Central, PICC or Fol: No Subjective Other Systems: pt was at MRI this AM and not seen per RN, pt took pills and felt well Objective vital signs Vital Sign Date Time Temp Pulse Resp B/P (MAP) Pulse Ox O2 Delivery O2 Flow Rate FiO2 06/13/24 13:00 97.6 78 16 130/81 (97) 94 97.6 06/13/24 08:00 Room Air* 0 21 Total Intake and Output 06/12/24 06/12/24 06/13/24 15:00 23:00 07:00 Intake Total 600 ml 450 ml Output Total 0 ml 0 ml Balance 600 ml 450 ml medications Current Medications Medications Dose Ordered Sig/William Route Start Time Stop Time Status Last Admin Dose Admin Nitroglycerin 0.4 mg Q5MINP PRN SL 06/12/24 01:45 Morphine Sulfate 2 mg Q30M PRN IV 06/12/24 01:45 Meropenem 50 ml @ 17 mls/hr DAILY@2200 IV 06/12/24 22:00 06/12/24 22:16 17 MLS/HR Vancomycin HCl 0 ml @ 0 mls/hr UD IV 06/12/24 02:00 Levetiracetam 500 mg BID PO 06/12/24 10:00 06/13/24 11:24 500 MG Atorvastatin Calcium 40 mg HS PO 06/12/24 22:00 06/12/24 22:14 40 MG Losartan Potassium 50 mg DAILY PO 06/12/24 10:00 06/13/24 11:22 50 MG Amlodipine Besylate 2.5 mg DAILY PO 06/12/24 10:00 06/13/24 11:24 2.5 MG Diagnostic Test (Pha) 1 strip ACHS 06/12/24 07:00 06/13/24 11:30 1 STRIP Insulin Human Regular ACHS SC 06/12/24 07:00 Dextrose 50 ml UD PRN IV 06/12/24 02:00 Sevelamer HCl 800 mg TIDWM PO 06/12/24 08:00 06/13/24 11:22 800 MG Ondansetron HCl 4 mg Q4HPRN PRN IV 06/12/24 02:15 Zirconium Oxide 10 gm TID PO 06/12/24 05:30 06/14/24 05:59 06/13/24 06:27 10 GM Examination: GENERAL:Abnormal, HEENT:Abnormal, LUNGS:Abnormal, CVS:Abnormal, ABDOMEN:Abnormal laboratory and microbiology Laboratory Tests 06/13/24 05:06 Test 06/13/24 05:06 Range/Units Serum Glucose 73 L 74-106 mg/dL Microbiology Date/Time Source Procedure Growth Status 06/12/24 02:50 Blood Blood Culture - Preliminary NO GROWTH AFTER 24 HOURS OF INCUBATION. Resulted 06/12/24 02:15 Nose MRSA Screen - Final Complete Problem List/Assessment/Plan Problem List/Assessment/Plan IMPRESSION: 1. Multifocal bilateral supratentorial acute ischemia with hemorrhagic transformation in the left occipital lobe. 2. Small bilateral mastoid effusions. bacteremia--- would not recommend LOUIE at this time given MRI findings. please discuss with appropriate specialist and hospitalist. once pt stable can proceed with LOUIE and please call cardiology back Plan discussed with: Other (rn) Date of Service: Jun 13, 2024 Billing Provider: AMY BAKER MD Common Visit Codes: NOT BILLABLE AMY BAKER MD Jun 13, 2024 13:30
[2024-06-13] MEDS: SODIUM CHL 0.9% 1000 ML BAG XX ONE (14:35)
--- NOTE | 2024-06-13 15:52 | DVHPN2 ---
Progress Note Date Seen: Jun 13, 2024 Medical Necessity Reason Pt with a Central, PICC or Fol: No Subjective Patient reports: Other (Patient appears altered) Review of Systems: Deferred Objective vital signs Vital Sign Date Time Temp Pulse Resp B/P (MAP) Pulse Ox O2 Delivery O2 Flow Rate FiO2 06/13/24 13:00 97.6 78 16 130/81 (97) 94 97.6 06/13/24 08:00 Room Air* 0 21 Total Intake and Output 06/12/24 06/12/24 06/13/24 15:00 23:00 07:00 Intake Total 600 ml 450 ml Output Total 0 ml 0 ml Balance 600 ml 450 ml medications Current Medications Medications Dose Ordered Sig/William Route Start Time Stop Time Status Last Admin Dose Admin Nitroglycerin 0.4 mg Q5MINP PRN SL 06/12/24 01:45 Morphine Sulfate 2 mg Q30M PRN IV 06/12/24 01:45 Meropenem 50 ml @ 17 mls/hr DAILY@2200 IV 06/12/24 22:00 06/12/24 22:16 17 MLS/HR Vancomycin HCl 0 ml @ 0 mls/hr UD IV 06/12/24 02:00 Levetiracetam 500 mg BID PO 06/12/24 10:00 06/13/24 11:24 500 MG Atorvastatin Calcium 40 mg HS PO 06/12/24 22:00 06/12/24 22:14 40 MG Losartan Potassium 50 mg DAILY PO 06/12/24 10:00 06/13/24 11:22 50 MG Amlodipine Besylate 2.5 mg DAILY PO 06/12/24 10:00 06/13/24 11:24 2.5 MG Diagnostic Test (Pha) 1 strip ACHS 06/12/24 07:00 06/13/24 11:30 1 STRIP Insulin Human Regular ACHS SC 06/12/24 07:00 Dextrose 50 ml UD PRN IV 06/12/24 02:00 Sevelamer HCl 800 mg TIDWM PO 06/12/24 08:00 06/13/24 11:22 800 MG Ondansetron HCl 4 mg Q4HPRN PRN IV 06/12/24 02:15 Examination: GENERAL:Abnormal, LUNGS:Abnormal, MSK:Abnormal, NEURO:Abnormal laboratory and microbiology Laboratory Tests 06/13/24 05:06 Test 1/19/25 05:06 Range/Units Serum Glucose 73 L 74-106 mg/dL Microbiology Date/Time Source Procedure Growth Status 06/12/24 02:50 Blood Blood Culture - Preliminary NO GROWTH AFTER 24 HOURS OF INCUBATION. Resulted 06/12/24 02:15 Nose MRSA Screen - Final Complete Problem List/Assessment/Plan Problem List/Assessment/Plan ESRD on dialysis Sepsis/ bacteremia Hyperkalemia Acute CVA on MRI/hemorrhagic transformation Hypertension Recommendations Dialysis today, no heparin with HD We will follow closely Neurology consult Resume home meds Plan discussed with: Other My Orders My Orders Orders - ERIN LIRA MD Procedure Category Date Status Time Acute Hepatitis Panel LAB 06/13/24 In Process 13:13 Epoetin Dario-Epbx PHA 06/13/24 Logged (Retacrit) 21:00 ERIN LIRA MD Jun 13, 2024 15:52
[2024-06-13] MEDS: EPOETIN ALFA-EPBX 4,000 UNIT/ML VIAL SC ONE (22:12)
[2024-06-14] VITALS (9 sets, daily range): BP systolic 118–136; BP diastolic 67–83; PULSE 78–101; RESP 18–20; TEMP 97.6–98.6; O2SAT 93–97
[2024-06-14 06:07] LABS: Eosinophils # (auto) 0.2 10 ^3/uL (0-0.8)
[2024-06-14 06:11] LABS: Basophils # (auto) 0.1 10 ^3/uL (0-0.2); Basophils % (auto) 0.9 % (0.0-2.0); Eosinophils % (auto) 2.7 % (0.0-7.0); Hematocrit 23.5 % (36.0-46.0); Hemoglobin 7.7 g/dL (12.2-16.2); Lymphocytes # (auto) 1.1 10 ^3/uL (0.4-5.4); Lymphocytes % (auto) 16.8 % (10.0-50.0); Mean Corpuscular Hemoglobin 29.8 pg (28.0-32.0); Mean Corpuscular Hgb Conc. 32.7 g/dL (32.0-36.0); Mean Corpuscular Volume 90.9 fL (80.0-100.0); Monocytes # (auto) 0.4 10 ^3/uL (0-1.3); Monocytes % (auto) 6.2 % (0.0-12.0); Neutrophils % (auto) 73.4 % (37.0-80.0); Nucleated Red Blood Cells % 0.1 %; Platelet Count (auto) 151 10^3/uL (140-450); Red Blood Cells 2.59 10^6/uL (4.0-5.20); Red Cell Distribution Width 16.7 % (11.8-14.3); White Blood Cell 6.8 10^3/uL (4.4-10.8)
[2024-06-14 06:49] LABS: Alkaline Phosphatase 97 U/L (46-116); Anion Gap 12 (5-15); BUN/Creatinine Ratio 7.2 (10.0-20.0); Carbon Dioxide 25 mmol/L (20-31); Chloride 104 mmol/L (98-107); Glucose 78 mg/dL (74-106); Potassium 3.6 mmol/L (3.5-5.1); Sodium 141 mmol/L (136-145); Total Protein 5.9 g/dL (5.7-8.2)
[2024-06-14 06:52] LABS: Alanine Aminotransferase < 9 U/L (7-40); Albumin 2.4 g/dL (3.2-4.8); Aspartate Aminotransferase 12 U/L (13-40); Bilirubin, Total 0.3 mg/dL (0.2-1.0); Blood Urea Nitrogen 54 mg/dL (9-23); Calcium 8.7 mg/dL (8.7-10.4)
[2024-06-14 09:31] LABS: Hepatitis B Surface Antigen Negative (Negative)
--- NOTE | 2024-06-14 09:51 | DVHPN2 ---
Reviewed: Care Plan, H&P, Labs, Medications, Previous Orders, Radiology Changes from previous H/P or p: No Changes Objective Vitals Vital Signs Date Time Temp Pulse Resp B/P (MAP) Pulse Ox O2 Delivery O2 Flow Rate FiO2 06/14/24 05:21 98.6 78 20 118/73 (88) 96 98.6 06/13/24 20:00 Room Air* 0 21 Intake/Output Intake and Output 06/14/24 07:00 Intake Total 525 ml Output Total 0 ml Balance 525 ml Intake Oral 525 ml Output Urine Total 0 ml # Voids 1 # Bowel Movements 2 Medications Current Medications Medications Dose Ordered Sig/William Route Start Time Stop Time Status Last Admin Dose Admin Nitroglycerin 0.4 mg Q5MINP PRN SL 06/12/24 01:45 Morphine Sulfate 2 mg Q30M PRN IV 06/12/24 01:45 Meropenem 50 ml @ 17 mls/hr DAILY@2200 IV 06/12/24 22:00 06/13/24 22:11 17 MLS/HR Vancomycin HCl 0 ml @ 0 mls/hr UD IV 06/12/24 02:00 Levetiracetam 500 mg BID PO 06/12/24 10:00 06/13/24 11:24 500 MG Atorvastatin Calcium 40 mg HS PO 06/12/24 22:00 06/12/24 22:14 40 MG Losartan Potassium 50 mg DAILY PO 06/12/24 10:00 06/13/24 11:22 50 MG Amlodipine Besylate 2.5 mg DAILY PO 06/12/24 10:00 06/13/24 11:24 2.5 MG Diagnostic Test (Pha) 1 strip ACHS 06/12/24 07:00 06/14/24 06:12 1 STRIP Insulin Human Regular ACHS SC 06/12/24 07:00 Dextrose 50 ml UD PRN IV 06/12/24 02:00 Sevelamer HCl 800 mg TIDWM PO 06/12/24 08:00 06/13/24 11:22 800 MG Ondansetron HCl 4 mg Q4HPRN PRN IV 06/12/24 02:15 Laboratory Results Laboratory Tests 06/14/24 05:13 Chemistry Test 06/14/24 05:13 Albumin 2.4 g/dL (3.2-4.8) L Calcium Level 8.7 mg/dL (8.7-10.4) Total Protein 5.9 g/dL (5.7-8.2) LFT Test 06/14/24 05:13 Alanine Aminotransferase (ALT) < 9 U/L (7-40) Alkaline Phosphatase 97 U/L (46-116) Aspartate Amino Transferase (AST) 12 U/L (13-40) L Total Bilirubin 0.3 mg/dL (0.2-1.0) Microbiology Microbiology Date/Time Source Procedure Growth Status 06/12/24 02:50 Blood Blood Culture - Preliminary NO GROWTH AFTER 48 HOURS OF INCUBATION. Resulted 06/12/24 02:15 Nose MRSA Screen - Final Complete Assessment/Plan Assessment/Plan Patient was transferred from [facility] Sepsis/bacteremia rule out subacute endocarditis cardiology consult appreciated meropenem vancomycin, blood cultures negative, pending LOUIE Paroxysmal atrial fibrillation, stage III, now NSR, on low-dose Eliquis Nonocclusive/superficial thrombus to the right upper extremity Acute on chronic anemia status post 2 unit PRBC/Hemoccult positive, hemoglobin stable at 7.9 Acute metabolic encephalopathy Subclinical hypothyroidism HX of CVA 2021 on antiplatelet therapy age-indeterminate left occipital infarct Slurry speech secondary to stroke Dyslipidemia Diabetes mellitus type 2 ESRD on HD nephrology consult appreciated, patient getting dialysis today Recent hospital stay at [place] for three weeks for blocked right upper arm dialysis graft, was discharged home in [place] Left IJ dialysis access placed Time spent 50 minutes Advanced care planning time 20 minutes Patient is full code MRI brain shows Multifocal bilateral supratentorial acute ischemia with hemorrhagic transformation in the left occipital lobe.: Consult for Neurology Dr. Davidson Reviewed blood culture report from [facility]; It shows staph epidermidis which possibly is contamination Repeat blood cultures in [facility] on 06/12 24 neg, continue antibiotics for the present Son Jair [phone] at bedside The patient lives alone in [place] research worker encyclopedia from [facility] visited the patient and advised SHANTA Nayak that patient should go to SNF and not home Plan discussed with: Patient Date of Service: Jun 14, 2024 Billing Provider: JOSÉ HAWLEY MD Common Visit Codes: [id number] CARE 30-74 MIN JOSÉ HAWLEY MD Jun 14, 2024 09:51
[2024-06-14 10:08] LABS: Hepatitis A Ab IgM Negative; Hepatitis B Core IgM Negative (Negative); Hepatitis C Antibody Negative (Negative)
--- NOTE | 2024-06-14 10:59 | DVHINCON2 ---
Date of service: Jun 14, 2024 Referring Physician Radha Reason for Consultation Multiple strokes History of Present Illness Ms. Palma is a 64 years old female with a history of hypertension, diabetes, dyslipidemia, atrial fibrillation, end-stage renal failure on hemodialysis, chronic stroke, iron deficiency, the patient was transferred from [facility] on 06/12/2024 because the patient was need cardiac eval uation/aiden for the evidence of SBE. At that time, she was awake, oriented to person, place, with clues she can tell me right year and month, but she has no idea why she came to the hospitals. She was not cooperative, because she wants to sleep now. The history is obtained by her son She went to [facility] with a chief company of fever, but she was mentally fine when she came, but last three days in the hospital, the patient was mentally altered. She had cerebellar possible blood culture, SBE was suspected the patient was transferred to [facility] for further evaluation In [facility], her MR brain scan shows evidence of acute/subacute multiple strokes, she was has chronic stroke In the [facility], the patient was has been given Keppra 500 mg b.i.d., but her son is not aware of a history of seizure or seizure symptoms, her home medication list does not include seizure medication is a Home medication includes: Eliquis 2.5 mg b.i.d., fexofenadine, Lipitor 40 mg daily, mirtazapine 50 mg, no seizure medication CBC, 06/14/2024: HGB: 7.7 PT/INR/PTT, 06/12/2024: 12.3/1.18/38.9 BUN/CR, 06/14/2024: 54/7.52 HGB A1c, 06/14/2019 5:8.7 Liver function tests, 06/14/2024: Unremarkable Hepatitis panel, 05/1924: Negative Venous Doppler, 06/12/2024: Findings consistent with thrombosis of the right upper extremity AV graft which likely extends to the right axillary vein. Recommend vascular surgery consultation for further evaluation CT head 06/13/24: 1. Age-indeterminate left occipital infarcts with hemorrhagic transformation versus laminar necrosis. Recommend further evaluation with MRI. Small amount of hemorrhagic material in the occipital horn of the left lateral ventricle can not be ruled out. 2. Old infarcts are seen in the right frontoparietal lobes. 3. Moderate global cortical atrophy and chronic microvascular ischemic changes. 4. Atherosclerotic calcification of the intracranial arteries noted. 5. Small left mastoid effusion. MRI head, 06/13/2024: 1. Multifocal bilateral supratentorial acute ischemia with hemorrhagic transformation in the left occipital lobe. 2. Small bilateral mast oid effusions Past Medical History Hypertension, diabetes, dyslipidemia, chronic atrial fibrillation, end-stage kidney failure on hemodialysis, chronic stroke, iron deficiency Past Surgical History IV fistula Family History: Patient reports no known family medical history. Family History Hypertension, diabetes, heart attack Social History She was tobacco smoker, but no history of alcohol or recreational substance abuse Allergies: Coded Allergies: NO KNOWN ALLERGIES (Unverified , 06/12/24) Home Meds Reported Medications Tramadol Hcl (Tramadol Hcl) 50 Mg Tab, 50 MG PO Q6HP PRN for PAIN SCALE 1 THRU 6, MG 06/12/24 Lorazepam (ATIVAN TABLET) 0.5 Mg Tb, 1 TAB PO TID PRN for ANXIETY, #90 TAB 06/12/24 Latanoprost (LATANOPROST) 0.005 % Rachel, 1 DROP EACHEYE QPM, #7.5 ML 3 Refills 06/12/24 Senna (Senokot) 8.6 Mg Tab, 1 TAB PO BID, #40 TAB 06/12/24 Losartan Potassium (Losartan Potassium) 50 Mg Tab, 50 MG PO DAILY for 30 Days, MG 06/12/24 Loperamide Hcl (Loperamide Hcl) 2 Mg Cap, 2 MG PO, MG 06/12/24 Mirtazapine (Remeron) 15 Mg Tab, 1 TAB PO QPM, #30 TAB 1 Refill 06/12/24 Atorvastatin Calcium (ATORVASTATIN CALCIUM) 40 Mg Tab, 1 TAB PO DAILY, #30 TAB 5 Refills 06/12/24 Sevelamer Carbonate (Renvela) 800 Mg Tab, 800 MG PO, TAB 06/12/24 Clonidine Hydrochloride (Clonidine Hcl) 0.2 Mg/24 Hr Dis, 0.2 MG PO QWEEKLY for 30 Days, MG 06/12/24 Amlodipine Besylate (Amlodipine Besylate) 2.5 Mg Tab, 1 TAB PO DAILY, #30 TAB 5 Refills 06/12/24 Lactobacillus (Acidophilus Probiotic) 1 Mg Tab, 1 MG PO, TAB 06/12/24 Fexofenadine Hcl (Fexofenadine Hcl) 60 Mg Tab, 60 MG PO BID for 30 Days, MG 06/12/24 Apixaban Base (ELIQUIS) 2.5 Mg Tab, 2.5 MG PO BID, TAB 06/12/24 Acetaminophen (Acetaminophen) 325 Mg Tab, 650 MG PO Q6HP PRN for MILD PAIN for 30 Days, MG 0 Refills 06/12/24 Review of Systems As above, the other systems are negative Vital Signs Vital Signs Date Time Temp Pulse Resp B/P (MAP) Pulse Ox O2 Delivery O2 Flow Rate FiO2 06/14/24 10:00 124/72 06/14/24 05:21 98.6 78 20 96 98.6 06/13/24 20:00 Room Air* 0 21 Physical Exam GENERAL EXAM: General: the patient is well developed and nourished. No acute distress. HEENT: Normocephalic, neck is supple, no carotid bruits. No mass. RESPIRATORY: Normal respiratory effort with symmetrical lung expansion. Lungs clear to auscultation. CARDIOVASCULAR: Regular rate and rhythm with no murmurs. S1, S2. ABDOMEN: Soft, nontender, normal bowel sound NEUROLOGICAL: MENTAL STATUS: Subjective SPEECH, LANGUAGE, HIGHER CORTICAL FUNCTION: no aphasia or dysathria. CRANIAL NERVES: #2: She may not able to see the right side #3,4,6: Pupils are equal, round and reactive. EOMs full and conjugate. #5: Facial sensation intact in all three divisions bilaterally. Mandibular strength intact. #7: Possible left facial weakness of upper motor neuron pattern #8: Hearing grossly normal to voice. #9,10: Uvula and soft palate rise in the midline. Swallow and voice are normal. #11: Trapezius and sternomastoid strength intact bilaterally. #12: Tongue midline. No fasciculations or atrophy. SENSATION: Sensation to touch and pinprick is normal. MOTOR: Normal tone in the upper and lower extremity. Normal muscle bulk. No fasciculations. No abnormal movements or posturing. Moves the arms and legs, not able to tell if there is lateralized weakness REFLEXES: Deep tendon reflexes are symmetrical. No pathological reflexes. CEREBELLAR/COORDINATION: Deferred GAIT/STATION: deferred. Labs/Diagnostic Data Labs Test 06/14/24 06:14 06/14/24 05:13 06/13/24 05:06 06/12/24 07:00 Range/Units POC Glucose 86 70-106 mg/dl White Blood Count 6.8 4.4-10.8 10^3/uL Red Blood Count 2.59 L 4.0-5.20 10^6/uL Hemoglobin 7.7 L 12.2-16.2 g/dL Hematocrit 23.5 L 36.0-46.0 % Mean Corpuscular Volume 90.9 80.0-100.0 fL Mean Corpuscular Hemoglobin 29.8 28.0-32.0 pg Mean Corpuscular Hemoglobin Concent 32.7 32.0-36.0 g/dL Red Cell Distribution Width 16.7 H 11.8-14.3 % Platelet Count 151 140-450 10^3/uL Mean Platelet Volume 7.9 6.9-10.8 fL Neutrophils (%) (Auto) 73.4 37.0-80.0 % Lymphocytes (%) (Auto) 16.8 10.0-50.0 % Monocytes (%) (Auto) 6.2 0.0-12.0 % Eosinophils (%) (Auto) 2.7 0.0-7.0 % Basophils (%) (Auto) 0.9 0.0-2.0 % Neutrophils # (Auto) 5.0 1.6-8.6 10 ^3/uL Lymphocytes # (Auto) 1.1 0.4-5.4 10 ^3/uL Monocytes # (Auto) 0.4 0-1.3 10 ^3/uL Eosinophils # (Auto) 0.2 0-0.8 10 ^3/uL Basophils # (Auto) 0.1 0-0.2 10 ^3/uL Nucleated Red Blood Cells 0.1 % Sodium Level 141 136-145 mmol/L Potassium Level 3.6 3.5-5.1 mmol/L Chloride Level 104 98-107 mmol/L Carbon Dioxide Level 25 20-31 mmol/L Anion Gap 12 5-15 Blood Urea Nitrogen 54 #H 9-23 mg/dL Creatinine 7.52 H 0.550-1.02 mg/dL Glomerular Filtration Rate Calc 6 >90 mL/min BUN/Creatinine Ratio 7.2 L 10.0-20.0 Serum Glucose 78 74-106 mg/dL Calcium Level 8.7 8.7-10.4 mg/dL Total Bilirubin 0.3 0.2-1.0 mg/dL Aspartate Amino Transferase (AST) 12 L 13-40 U/L Alanine Aminotransferase (ALT) < 9 7-40 U/L Alkaline Phosphatase 97 46-116 U/L Total Protein 5.9 5.7-8.2 g/dL Albumin 2.4 L 3.2-4.8 g/dL Random Vancomycin Level 37.6 H 5-10 ug/mL Hepatitis A IgM Antibody Negative Hepatitis B Surface Antigen Negative Negative Hepatitis B Core IgM Antibody Negative Negative Hepatitis C Antibody Negative Negative Troponin I High Sensitivity 7 </=34 ng/L Test 06/12/24 04:00 06/12/24 02:50 Range/Units Influenza Type A Antigen Negative Negative Influenza Type B Antigen Negative Negative SARS-CoV-2 Antigen (Rapid) Negative NEGATIVE Prothrombin Time 12.3 H 9.3-11.8 sec Prothrombin Time INR 1.18 H 0.9-1.15 Activated Partial Thromboplast Time 38.9 H 24.5-34.5 SEC Hemoglobin A1c 5.6 <5.7 % A1C Phosphorus Level 6.2 H 2.4-5.1 mg/dL Magnesium Level 2.6 1.6-2.6 mg/dL Iron Level 56 50-170 ug/dL Total Iron Binding Capacity 125 L 250-425 ug/dL Percent Iron Saturation 44.8 15-50 % Ammonia 15 11-32 umol/L B-Type Natriuretic Peptide 288.82 0-100 pg/mL Lipase 22 12-53 U/L Thyroid Stimulating Hormone (TSH) 8.89 H 0.55-4.78 uIU/mL Free Thyroxine (T4) Calculated 0.97 0.89-1.76 ng/dL Free Triiodothyronine (T3) pg/mL 1.53 L 2.3-4.2 pg/mL Microbiology Date/Time Source Procedure Growth Status 06/12/24 02:50 Blood Blood Culture - Preliminary NO GROWTH AFTER 48 HOURS OF INCUBATION. Resulted 06/12/24 02:15 Nose MRSA Screen - Final Complete Assessment Multiple acute/subacute strokes secondary to AFib Chronic stroke secondary to AFib ? Vascular dementia Metabolic encephalopathy Sepsis DVT Rule out SBE On Keppra Plan/Recommendation Monitoring Supportive treatment Telemetry Vitamin B12, folic acid, TSH EEG Aiden Carotid Doppler IV antibiotics Eliquis 2.5 mg b.i.d. Lipitor 40 mg daily Keppra 500 mg b.i.d. for now Ativan for seizure breakthrough Hemodialysis Cardiology on case Nephrology are case More recommendation per clinical course Prognosis: Poor This medical document was created using an electronic medical record system with [employer] dictation system. Although this document has been carefully reviewed, there may still be some phonetic and typographical errors. These areas are purely typographical due to imperfections of the software programs, and do not reflect any compromise in the patient's medical care. Plan discussed with: Rubin, Other AVA ORDAZ MD Jun 14, 2024 10:59
--- NOTE | 2024-06-14 16:05 | DVHPN2 ---
Progress Note Date Seen: Jun 14, 2024 Medical Necessity Reason Pt with a Central, PICC or Fol: No Subjective Patient reports: No new complaints Other Systems: Patient seen and examined on HD, BP stable Objective vital signs Vital Sign Date Time Temp Pulse Resp B/P (MAP) Pulse Ox O2 Delivery O2 Flow Rate FiO2 06/14/24 13:00 98.2 92 18 136/83 (100) 98.2 06/14/24 09:00 95 06/14/24 08:00 Room Air* 0 21 Total Intake and Output 06/13/24 06/13/24 06/14/24 15:00 23:00 07:00 Intake Total 525 ml 0 ml Output Total 0 ml Balance 525 ml 0 ml medications Current Medications Medications Dose Ordered Sig/William Route Start Time Stop Time Status Last Admin Dose Admin Nitroglycerin 0.4 mg Q5MINP PRN SL 06/12/24 01:45 Morphine Sulfate 2 mg Q30M PRN IV 06/12/24 01:45 Meropenem 50 ml @ 17 mls/hr DAILY@2200 IV 06/12/24 22:00 06/13/24 22:11 17 MLS/HR Vancomycin HCl 0 ml @ 0 mls/hr UD IV 06/12/24 02:00 Levetiracetam 500 mg BID PO 06/12/24 10:00 06/14/24 09:59 500 MG Atorvastatin Calcium 40 mg HS PO 06/12/24 22:00 06/12/24 22:14 40 MG Losartan Potassium 50 mg DAILY PO 06/12/24 10:00 06/14/24 10:00 50 MG Amlodipine Besylate 2.5 mg DAILY PO 06/12/24 10:00 06/14/24 10:00 2.5 MG Diagnostic Test (Pha) 1 strip ACHS 06/12/24 07:00 06/14/24 06:12 1 STRIP Insulin Human Regular ACHS SC 06/12/24 07:00 Dextrose 50 ml UD PRN IV 06/12/24 02:00 Sevelamer HCl 800 mg TIDWM PO 06/12/24 08:00 06/14/24 10:00 800 MG Ondansetron HCl 4 mg Q4HPRN PRN IV 06/12/24 02:15 Examination: LUNGS:Normal, CVS:Normal, MSK:Normal laboratory and microbiology Laboratory Tests 06/14/24 05:13 Test 06/14/24 05:13 Range/Units Serum Glucose 78 74-106 mg/dL Microbiology Date/Time Source Procedure Growth Status 06/12/24 02:50 Blood Blood Culture - Preliminary NO GROWTH AFTER 48 HOURS OF INCUBATION. Resulted 06/12/24 02:15 Nose MRSA Screen - Final Complete Problem List/Assessment/Plan Problem List/Assessment/Plan ESRD on dialysis Sepsis/ bacteremia Hyperkalemia Acute CVA on MRI/hemorrhagic transformation Hypertension Recommendations Continue with UF 2-3 L as tolerated Epogen 10,000 IV with HD Renal diet Resume home meds Neurology consult Will continue to follow Plan discussed with: Patient My Orders My Orders Orders - CHARMAINE TINOCO MD Procedure Category Date Status Time Renal DIET 06/14/24 Transmitted Standard(2gna,3gk,Lopho) Lunch Dietary Evaluation Review Comments: Recommend Renal Standard 2 gNa 3K lo phos for dialysis pt. increased PO intakes, or/nepro nutrition supplement BID Expected Outcomes/Goals: rountine HD per instruction, improved appetite, increased PO protein intake free from sepsis or infections, healed wouonds. CHARMAINE TINOCO MD Jun 14, 2024 16:05
[2024-06-14 22:58] LABS: Triglycerides 67 mg/dL (< 150)
[2024-06-14 22:59] LABS: LDL Cholesterol 42 mg/dL (< 100)
[2024-06-14 23:00] LABS: Cholesterol 92 mg/dL (< 200)
[2024-06-14 23:04] LABS: Folate (Folic Acid) 3.46 ng/mL (>5.38)
[2024-06-14 23:05] LABS: Free T4 (Free Thyroxine) 0.89 ng/dL (0.89-1.76); HDL Cholesterol 31 mg/dL (40-59)
--- NOTE | 2024-06-14 23:17 | DVH ---
Carotid Duplex Date: 06/14/2024 10:42 PM Clinical History: cva Comparison: None Technique: Duplex Doppler evaluation of the extracranial carotid and vertebral arteries including color Doppler and spectral/pulsed waveform analysis was performed. Findings: RIGHT SIDE: The peak systolic velocities are 46.7 cm/s in the distal CCA and 53.2 cm/s in the proximal ICA.The IC A/CCA ratio is less than 2. The external carotid artery is patent with peak systolic velocity of 110.9 cm/s proximally. There is appropriate antegrade flow in the right vertebral artery, 78.5 cm/s IMPRESSION: 1. No hemodynamically significant stenosis noted in the right carotid system. 2. Reference: Radiology 2003; [id number]
[2024-06-15] VITALS (7 sets, daily range): BP systolic 118–142; BP diastolic 73–85; PULSE 70–125; RESP 18–20; TEMP 97.5–98.9; O2SAT 92–98
--- NOTE | 2024-06-15 08:35 | DVHPN2 ---
Reviewed: Care Plan, H&P, Labs, Medications, Previous Orders, Radiology Changes from previous H/P or p: No Changes Objective Vitals Vital Signs Date Time Temp Pulse Resp B/P (MAP) Pulse Ox O2 Delivery O2 Flow Rate FiO2 06/15/24 05:00 98.6 104 18 142/81 (101) 96 98.6 06/14/24 20:00 Room Air* 0 21 Intake/Output Intake and Output 06/15/24 07:00 Intake Total 794 ml Balance 794 ml Intake Oral 744 ml IV Total 50 ml # Voids 2 # Bowel Movements 2 Medications Current Medications Medications Dose Ordered Sig/William Route Start Time Stop Time Status Last Admin Dose Admin Nitroglycerin 0.4 mg Q5MINP PRN SL 06/12/24 01:45 Morphine Sulfate 2 mg Q30M PRN IV 06/12/24 01:45 Meropenem 50 ml @ 17 mls/hr DAILY@2200 IV 06/12/24 22:00 06/14/24 21:33 17 MLS/HR Vancomycin HCl 0 ml @ 0 mls/hr UD IV 06/12/24 02:00 Levetiracetam 500 mg BID PO 06/12/24 10:00 06/14/24 21:33 500 MG Atorvastatin Calcium 40 mg HS PO 06/12/24 22:00 06/14/24 21:33 40 MG Losartan Potassium 50 mg DAILY PO 06/12/24 10:00 06/14/24 10:00 50 MG Amlodipine Besylate 2.5 mg DAILY PO 06/12/24 10:00 06/14/24 10:00 2.5 MG Diagnostic Test (Pha) 1 strip ACHS 06/12/24 07:00 06/15/24 06:18 1 STRIP Insulin Human Regular ACHS SC 06/12/24 07:00 Dextrose 50 ml UD PRN IV 06/12/24 02:00 Sevelamer HCl 800 mg TIDWM PO 06/12/24 08:00 06/14/24 16:23 800 MG Ondansetron HCl 4 mg Q4HPRN PRN IV 06/12/24 02:15 Laboratory Results Laboratory Tests 06/14/24 05:13 Microbiology Microbiology Date/Time Source Procedure Growth Status 06/12/24 02:50 Blood Blood Culture - Preliminary NO GROWTH AFTER 72 HOURS OF INCUBATION. Resulted 06/12/24 02:15 Nose MRSA Screen - Final Complete Labs and/or images reviewed: Labs reviewed by me, Image(s) reviewed by me Assessment/Plan Assessment/Plan Patient was transferred from [facility] Sepsis/bacteremia rule out subacute endocarditis cardiology consult appreciated meropenem vancomycin, blood cultures negative, per Dr. Knox patient not a candidate for LOUIE at the present time because of MRI findings Paroxysmal atrial fibrillation, stage III, now NSR, on low-dose Eliquis Nonocclusive/superficial thrombus to the right upper extremity Acute on chronic anemia status post 2 unit PRBC/Hemoccult positive, hemoglobin stable at 7.9 Acute metabolic encephalopathy Subclinical hypothyroidism HX of CVA 2021 on antiplatelet therapy age-indeterminate left occipital infarct Slurry speech secondary to stroke Dyslipidemia Diabetes mellitus type 2 ESRD on HD nephrology consult appreciated, patient getting dialysis Recent hospital stay at [place] for three weeks for blocked right upper arm dialysis graft, was discharged home in [place] Left IJ dialysis access placed Time spent 65 minutes Advanced care planning time 20 minutes Patient is full code MRI brain shows Multifocal bilateral supratentorial acute ischemia with hemorrhagic transformation in the left occipital lobe.: Consult for Neurology Dr. Davidson appreciated Reviewed blood culture report from [facility]; It shows staph epidermidis which possibly is contamination Repeat blood cultures in [facility] on 06/12 25 neg, continue antibiotics for the present Son Jair [phone] at bedside The patient lives alone in [place] community support worker from [facility] visited the patient and advised SHANTA Nayak that patient should go to SNF and not home Patient to be discharged to detention facility in [place] or in [place], as local nursing homes would not take her insurance. Plan discussed with: Patient My Orders Orders - JOSÉ HAWLEY MD Procedure Category Date Status Time Dietary NOTICE 06/14/24 Transmitted Recommendations 12:07 Date of Service: Jun 15, 2024 Billing Provider: JOSÉ HAWLEY MD Common Visit Codes: [id number] CARE 30-74 MIN JOSÉ HAWLEY MD Jun 15, 2024 08:34
--- NOTE | 2024-06-15 11:04 | DVHPN2 ---
Progress Note - Dictate Date Seen: Jun 15, 2024 Medical Necessity Reason Pt with a Central, PICC or Fol: No Subjective Ms. Palma is a 64 years old female with a history of hypertension, diabetes, dyslipidemia, atrial fibrillation, end-stage renal failure on hemodialysis, chronic stroke, iron deficiency, the patient was transferred from [facility] on 06/12/2024 because the patient was need cardiac evaluation/goldie for the evidence of SBE. I have seen and examined the patient, I have talked to her scooter mechanic, Dr. Arreola, and carie, nurse, she was doing fine, awake, oriented to person, place, socially appropriate, she reports excessive coughing According to Dr. Arreola, the patient was had seizure when she was in the [facility] Home medication includes: Eliquis 2.5 mg b.i.d., fexofenadine, Lipitor 40 mg daily, mirtazapine 50 mg, no seizure medication CBC, 06/14/2024: HGB: 7.7 PT/INR/PTT, 06/12/2024: 12.3/1.18/38.9 BUN/CR, 06/14/2024: 54/7.52 HGB A1c, 06/14/2019 5:8.7 Liver function tests, 06/14/2024: Unremarkable Hepatitis panel, 05/1924: Negative TG/HDL/LDL/HDL, 05/2024: 67/92/42/31 Vitamin B12, 05/2024: 806 folic acid, 05/2024: 3.46 TSH 05/2024: 5.13 Venous Doppler, 06/12/2024: Findings consistent with thrombosis of the right upper extremity AV graft which likely extends to the right axillary vein. Recommend vascular surgery consultation for further evaluation CT head 06/13/24: 1. Age-indeterminate left occipital infarcts with hemorrhagic transformation versus laminar necrosis. Recommend further evaluation with MRI. Small amount of hemorrhagic material in the occipital horn of the left lateral ventricle can not be ruled out. 2. Old infarcts are seen in the right frontoparietal lobes. 3. Moderate global cortical atrophy and chronic microvascular ischemic changes. 4. Atherosclerotic calcification of the intracranial arteries noted. 5. Small left mastoid effusion. MRI head, 06/13/2024: 1. Multifocal bilateral supratentorial acute ischemia with hemorrhagic transformation in the left occipital lobe. 2. Small bilateral mastoid vital signs Vital Sign Date Time Temp Pulse Resp B/P (MAP) Pulse Ox O2 Delivery O2 Flow Rate FiO2 06/15/24 10:05 118/73 06/15/24 05:00 98.6 104 18 96 98.6 06/14/24 20:00 Room Air* 0 21 Total Intake and Output 06/14/24 06/14/24 06/15/24 15:00 23:00 07:00 Intake Total 594 ml 200 ml Balance 594 ml 200 ml medications Current Medications Medications Dose Ordered Sig/William Route Start Time Stop Time Status Last Admin Dose Admin Nitroglycerin 0.4 mg Q5MINP PRN SL 06/12/24 01:45 Morphine Sulfate 2 mg Q30M PRN IV 06/12/24 01:45 Meropenem 50 ml @ 17 mls/hr DAILY@2200 IV 06/12/24 22:00 06/14/24 21:33 17 MLS/HR Vancomycin HCl 0 ml @ 0 mls/hr UD IV 06/12/24 02:00 Levetiracetam 500 mg BID PO 06/12/24 10:00 06/15/24 10:04 500 MG Atorvastatin Calcium 40 mg HS PO 06/12/24 22:00 06/14/24 21:33 40 MG Losartan Potassium 50 mg DAILY PO 06/12/24 10:00 06/15/24 10:04 50 MG Amlodipine Besylate 2.5 mg DAILY PO 06/12/24 10:00 06/15/24 10:05 2.5 MG Diagnostic Test (Pha) 1 strip ACHS 06/12/24 07:00 06/15/24 06:18 1 STRIP Insulin Human Regular ACHS SC 06/12/24 07:00 Dextrose 50 ml UD PRN IV 06/12/24 02:00 Sevelamer HCl 800 mg TIDWM PO 06/12/24 08:00 06/15/24 10:04 800 MG Ondansetron HCl 4 mg Q4HPRN PRN IV 06/12/24 02:15 objective General: the patient is well developed and nourished. No acute distress. MENTAL STATUS: Subjective SPEECH, LANGUAGE, HIGHER CORTICAL FUNCTION: no aphasia or dysathria. CRANIAL NERVES: Pupils are equal, round and reactive. EOMs full and conjugate. Facial sensation intact in all three divisions bilaterally. Mandibular strength intact. Possible left facial weakness of upper motor neuron pattern SENSATION: Sensation to touch and pinprick is normal. MOTOR: Normal tone in the upper and lower extremity. Normal muscle bulk. No fasciculations. No abnormal movements or posturing. Moves the arms and legs, not able to tell if there is lateralized weakness REFLEXES: Deep tendon reflexes are symmetrical. No pathological reflexes. CEREBELLAR/COORDINATION: Deferred GAIT/STATION: deferred. laboratory and microbiology Laboratory Tests 06/14/24 05:13 Test 06/15/24 10:36 Range/Units Serum Glucose Pending Problem List Multiple acute/subacute strokes secondary to AFib Chronic stroke secondary to AFib ? Vascular dementia Metabolic encephalopathy Sepsis DVT Rule out SBE Seizure in the [facility] Assessment/Plan Monitoring Supportive treatment Telemetry EEG GOLDIE Carotid Doppler IV antibiotics Eliquis 2.5 mg b.i.d. Lipitor 40 mg daily Keppra 500 mg b.i.d. Ativan for seizure breakthrough Hemodialysis Cardiology on case Nephrology are case Okay to have GOLDIE from neurologic point of view More recommendation per clinical course This medical document was created using an electronic medical record system with [employer] dictation system. Although this document has been carefully reviewed, there may still be some phonetic and typographical errors. Prognosis poor Dietary Evaluation Review Comments: Recommend Renal Standard 2 gNa 3K lo phos for dialysis pt. increased PO intakes, or/nepro nutrition supplement BID Expected Outcomes/Goals: rountine HD per instruction, improved appetite, increased PO protein intake free from sepsis or infections, healed wouonds. Plan discussed with: Other Total Time (mins): 35 AVA ORDAZ MD Jun 15, 2024 11:04
[2024-06-15 11:22] LABS: Chloride 105 mmol/L (98-107); Potassium 3.9 mmol/L (3.5-5.1); Sodium 142 mmol/L (136-145)
[2024-06-15 11:23] LABS: Anion Gap 9 (5-15); Calcium 8.8 mg/dL (8.7-10.4); Carbon Dioxide 28 mmol/L (20-31)
[2024-06-15 11:28] LABS: BUN/Creatinine Ratio 5.7 (10.0-20.0)
[2024-06-15 11:30] LABS: Blood Urea Nitrogen 37 mg/dL (9-23); Glucose 133 mg/dL (74-106)
--- NOTE | 2024-06-15 12:33 | DVHPN2 ---
Progress Note Date Seen: Jun 15, 2024 Medical Necessity Reason Pt with a Central, PICC or Fol: No Subjective Patient reports: No new complaints Other Systems: Patient seen and examined by myself today Objective vital signs Vital Sign Date Time Temp Pulse Resp B/P (MAP) Pulse Ox O2 Delivery O2 Flow Rate FiO2 06/15/24 10:05 118/73 06/15/24 08:00 89 18 97 Room Air* 0 21 06/15/24 05:00 98.6 98.6 Total Intake and Output 06/14/24 06/14/24 06/15/24 15:00 23:00 07:00 Intake Total 594 ml 200 ml Balance 594 ml 200 ml medications Current Medications Medications Dose Ordered Sig/William Route Start Time Stop Time Status Last Admin Dose Admin Nitroglycerin 0.4 mg Q5MINP PRN SL 06/12/24 01:45 Morphine Sulfate 2 mg Q30M PRN IV 06/12/24 01:45 Meropenem 50 ml @ 17 mls/hr DAILY@2200 IV 06/12/24 22:00 06/14/24 21:33 17 MLS/HR Vancomycin HCl 0 ml @ 0 mls/hr UD IV 06/12/24 02:00 Levetiracetam 500 mg BID PO 06/12/24 10:00 06/15/24 10:04 500 MG Atorvastatin Calcium 40 mg HS PO 06/12/24 22:00 06/14/24 21:33 40 MG Losartan Potassium 50 mg DAILY PO 06/12/24 10:00 06/15/24 10:04 50 MG Amlodipine Besylate 2.5 mg DAILY PO 06/12/24 10:00 06/15/24 10:05 2.5 MG Diagnostic Test (Pha) 1 strip ACHS 06/12/24 07:00 06/15/24 11:07 1 STRIP Insulin Human Regular ACHS SC 06/12/24 07:00 06/15/24 11:12 2 UNITS Dextrose 50 ml UD PRN IV 06/12/24 02:00 Sevelamer HCl 800 mg TIDWM PO 06/12/24 08:00 06/15/24 12:18 800 MG Ondansetron HCl 4 mg Q4HPRN PRN IV 06/12/24 02:15 Patient Own Medication 2.5 mg BID PO 06/15/24 22:00 UNV Examination: LUNGS:Normal, CVS:Normal, MSK:Normal laboratory and microbiology Laboratory Tests 06/15/24 10:36 06/14/24 05:13 Test 06/15/24 10:36 Range/Units Serum Glucose 133 H 74-106 mg/dL Microbiology Date/Time Source Procedure Growth Status 06/12/24 02:50 Blood Blood Culture - Preliminary NO GROWTH AFTER 72 HOURS OF INCUBATION. Resulted 06/12/24 02:15 Nose MRSA Screen - Final Complete Problem List/Assessment/Plan Problem List/Assessment/Plan ESRD on dialysis Sepsis/ bacteremia Hyperkalemia Recurrent CVA due to AFib AFib with RVR Hypertension Patient pulled out her IJ hemodialysis catheter Recommendations Radiology for tunneled hemodialysis catheter Hemodialysis tomorrow after catheter placement Epogen 10,000 IV with HD Renal diet Resume home meds Neurology consult Cardiology consult Will continue to follow Plan discussed with: Patient My Orders My Orders Orders - CHARMAINE TINOCO MD Procedure Category Date Status Time * Radiologist Consult CONS 06/15/24 Transmitted 10:20 Hemodialysis Orders ORDERS 06/16/24 Transmitted 07:00 Dialysis Nursing WHIT 06/16/24 In Process Message 07:00 Heparin Sodium PHA 06/16/24 In Process (Porcine) 07:00 Heparin Sodium PHA 06/16/24 In Process (Porcine) 07:00 Sodium Chloride 0.9% PHA 06/16/24 In Process 07:00 Document Fluid Input WHIT 06/16/24 In Process And Outpu 07:00 Epoetin Dario-Epbx PHA 06/16/24 In Process (Retacrit) 21:00 Dietary Evaluation Review Comments: Recommend Renal Standard 2 gNa 3K lo phos for dialysis pt. increased PO intakes, or/nepro nutrition supplement BID Expected Outcomes/Goals: rountine HD per instruction, improved appetite, increased PO protein intake free from sepsis or infections, healed wouonds. CHARMAINE TINOCO MD Jun 15, 2024 12:33
--- NOTE | 2024-06-15 12:46 | DVHSR ---
APPROVED REPORT EXAM: Two-dimensional and M-mode echocardiogram with Doppler and color Doppler. Blood Pressure: 136/83 mmHg INDICATION LOUIE RISK FACTORS Height: 5'3", Weight: 147 DIMENSIONS LVDd4.1 (3.8-5.7cm)LA (2D) (1.9-4.0cm)Aortic Root3.6 (2.0-3.7cm) LVDs2.7 (2.5-4.0cm)LA (MM) (1.9-4.0cm)Aortic Cusp Exc0.8 (1.5-2.0cm) EF (%) 60.0 (55-70%)Rt. Atrium (1.9-4.0cm)Asc. Aorta cm IVSd1.1 (0.7-1.1cm)RV (D) (1.8-2.4cm) PWd1.3 (0.7-1.1cm) Mitral Valve MitralMitral Stenosis E/A ratio0.02D MVAcm2 Aortic Valve Aortic ValveAortic Stenosis V11.19m/Kyle Mean GR.6mmHg V21.53m/Kyle Peak GR.9mmHg LVOT Diameter1.9 (1.8-2.4cm)Doppler AVA2.20cm2 Pulmonic Valve V21.17m/s Tricuspid Valve TR Velocity2.67m/s [id number] Other Information Quality : Technically LimitedRhythm : Technically limited study due to body habitus, patient uncooperative, lying on right side. Patient e nded study early. Conclusion lvef 60% severe concentric LVH small lv cavity small pericardial effusion no obvious valvular vegetation noted aortic scleros mild, mild aortic regurg
[2024-06-15] MEDS: APIXABAN 2.5 MG TAB PO SCH (22:11)
[2024-06-16] VITALS (11 sets, daily range): BP systolic 121–161; BP diastolic 80–101; PULSE 72–86; RESP 17–20; TEMP 97–98.1; O2SAT 93–98
[2024-06-16] MEDS: guaiFENesin-DM 100/10mg/5ml SYR PO PRN (04:13)
--- NOTE | 2024-06-16 08:44 | DVHPN2 ---
Reviewed: Care Plan, H&P, Labs, Medications, Previous Orders, Radiology Changes from previous H/P or p: No Changes Objective Vitals Vital Signs Date Time Temp Pulse Resp B/P (MAP) Pulse Ox O2 Delivery O2 Flow Rate FiO2 06/16/24 05:00 97.5 80 19 147/90 (109) 97 97.5 06/15/24 20:00 Room Air* 0 21 Intake/Output Intake and Output 06/16/24 07:00 Intake Total 670 ml Output Total 0 ml Balance 670 ml Intake Oral 670 ml Output Urine Total 0 ml Medications Current Medications Medications Dose Ordered Sig/William Route Start Time Stop Time Status Last Admin Dose Admin Nitroglycerin 0.4 mg Q5MINP PRN SL 06/12/24 01:45 Morphine Sulfate 2 mg Q30M PRN IV 06/12/24 01:45 Meropenem 50 ml @ 17 mls/hr DAILY@2200 IV 06/12/24 22:00 06/14/24 21:33 17 MLS/HR Vancomycin HCl 0 ml @ 0 mls/hr UD IV 06/12/24 02:00 Levetiracetam 500 mg BID PO 06/12/24 10:00 06/15/24 22:11 500 MG Atorvastatin Calcium 40 mg HS PO 06/12/24 22:00 06/15/24 22:11 40 MG Losartan Potassium 50 mg DAILY PO 06/12/24 10:00 06/15/24 10:04 50 MG Amlodipine Besylate 2.5 mg DAILY PO 06/12/24 10:00 06/15/24 10:05 2.5 MG Diagnostic Test (Pha) 1 strip ACHS 06/12/24 07:00 06/16/24 06:12 1 STRIP Insulin Human Regular ACHS SC 06/12/24 07:00 06/15/24 11:12 2 UNITS Dextrose 50 ml UD PRN IV 06/12/24 02:00 Sevelamer HCl 800 mg TIDWM PO 06/12/24 08:00 06/15/24 22:11 800 MG Ondansetron HCl 4 mg Q4HPRN PRN IV 06/12/24 02:15 Patient Own Medication 2.5 mg BID PO 06/15/24 22:00 UNV Apixaban 2.5 mg BID PO 06/15/24 22:00 06/15/24 22:11 2.5 MG Guaifenesin/ Dextromethorphan 10 ml Q4HP PRN PO 06/16/24 03:45 06/16/24 04:13 10 ML Laboratory Results Laboratory Tests 06/14/24 05:13 06/15/24 10:36 Chemistry Test 06/15/24 10:36 Calcium Level 8.8 mg/dL (8.7-10.4) Microbiology Microbiology Date/Time Source Procedure Growth Status 06/12/24 02:50 Blood Blood Culture - Preliminary NO GROWTH AFTER 72 HOURS OF INCUBATION. Resulted 06/12/24 02:15 Nose MRSA Screen - Final Complete Labs and/or images reviewed: Labs reviewed by me, Image(s) reviewed by me Assessment/Plan Assessment/Plan Patient was transferred from [facility] Sepsis/bacteremia rule out subacute endocarditis cardiology consult appreciated meropenem vancomycin, blood cultures negative, per Dr. Knox patient not a candidate for LOUIE at the present time because of MRI findings Paroxysmal atrial fibrillation, stage III, now NSR, on low-dose Eliquis Nonocclusive/superficial thrombus to the right upper extremity Acute on chronic anemia status post 2 unit PRBC/Hemoccult positive, hemoglobin stable at 7.9 Acute metabolic encephalopathy Subclinical hypothyroidism HX of CVA 2021 on antiplatelet therapy age-indeterminate left occipital infarct Slurry speech secondary to stroke Dyslipidemia Diabetes mellitus type 2 ESRD on HD nephrology consult appreciated, patient getting dialysis Recent hospital stay at [facility] for three weeks for blocked right upper arm dialysis graft, was discharged home in [place] Left IJ dialysis access placed Time spent 65 minutes Advanced care planning time 20 minutes Patient is full code MRI brain shows Multifocal bilateral supratentorial acute ischemia with hemorrhagic transformation in the left occipital lobe.: Consult for Neurology Dr. Davidson appreciated Reviewed blood culture report from [facility]; It shows staph epidermidis which possibly is contamination Repeat blood cultures in [facility] on 06/12 24 neg, continue antibiotics for the present Son Jair [phone] at bedside The patient lives alone in [place] automotive worker from [facility] visited the patient and advised SHANTA Nayak that patient should go to SNF and not home Patient to be discharged to nursing home facility in [place] or in [place], as local nursing homes would not take her insurance. Patient pulled out right IJ, Radiology consult placed for tunneled dialysis cath and dialysis will be done afterwards. Plan discussed with: Patient Date of Service: Jun 16, 2024 Billing Provider: JOSÉ HAWLEY MD Common Visit Codes: [id number] INP/OBS CARE(HIGH) JOSÉ HAWLEY MD Jun 16, 2024 08:44
[2024-06-16] MEDS: MIDAZOLAM HCL 2MG/2ML 2ml VIAL (1mg/ml) ONE (12:09)
[2024-06-16] MEDS: fentaNYL CITRATE 100 MCG/2 ML VL ONE (12:09)
[2024-06-16] MEDS: LIDOCAINE 2%HCL (LOCAL ANESTH.) INJ 20ML MDV ONE (12:25)
--- NOTE | 2024-06-16 12:26 | ECG ---
[facility] Test Date: 2024-06-16 Test Time: 12:12:14 Pat Name: JESSICA PRUITT Department: Room: 0222T A Gender: F Project Controls Specialist: Allegra RAO : 1960 Requested By: MALCOM ORDAZ Order Number: [id number] Reading MD: Jaime Kevin Measurements Intervals [place] Rate: 76 P: 54 NC: 192 QRS: -45 QRSD: 86 T: 64 QT: 388 QTc: 436 Interpretive Statements Normal sinus rhythm Left axis deviation Low voltage QRS Possible inferior infarct , age undetermined Poor R wave progrssion; precordial leads Electronically Signed On 06-17-2024 8:13:47 PST by Jaime Kevin Please click the below link to view image of tracing.
[2024-06-16] MEDS: HEPARIN SODIUM (PORCINE) 5000 UNITS/ML 1ML VIAL ONE (12:53)
--- NOTE | 2024-06-16 14:01 | DVH ---
PROCEDURE: TUNNELED CENTRAL VENOUS CATHETER PLACEMENT USING FLUOROSCOPY AND ULTRASOUND HISTORY: TD PLACEMENT DOCUMENTATION: Informed consent was obtained and a procedural time out was performed. SEDATION: Moderate sedation was utilized during the procedure. The patient received benzodiazepines a nd opioids, the dosing of which was documented in the patient s permanent medical record. Pre-sedatio n history and evaluation revealed no contraindications to sedation. The patient s level of consciousn ess and physiologic status was monitored continuously by the physician and nursing staff throughout t he procedure. Total intra-service moderate sedation time was 30 minutes. FLUORO: 1 minutes, DAP: 2 mGy TECHNIQUE: The skin over the LEFT internal jugular vein and chest was sterilely prepped, draped and anesthetized with 1% lidocaine with epinephrine. The vein was accessed with a 21-gauge needle under u ltrasound guidance with an image archived in the PACS. A guidewire was then passed into the central v eins under fluoroscopy. The subcutaneous tunnel was anesthetized with 1% lidocaine and the catheter w as tunneled to the venous entry site, cut to the appropriate length, and inserted through a peel away sheath. A final radiograph was obtained, the catheter was flushed and secured in place, and sterile dressings were applied. Procedural physician complied with all CLIP criteria, including preprocedural hand hygiene and use of maximum sterile barriers including hat, gown, sterile gloves, mask, and head to toe drape. The neck and chest were prepped with chlorhexidine solution and draped in the usual sterile fashion. The prep solution was allowed to dry prior to puncture. FINDINGS: Ultrasound demonstrates a patent LEFT internal jugular vein. The tip of the catheter was p laced near the cavoatrial junction. No complications are identified. IMPRESSION: SUCCESSFUL 14.5 fr x 23 cm CZECH DUAL-LUMEN POWER INJECTABLE TUNNELED CENTRAL VENOUS CATHETER PLACE MENT. THE CATHETER IS READY FOR IMMEDIATE USE.
[2024-06-16] MEDS: ALBUMIN 25% 100 ML IV PRN (14:50)
--- NOTE | 2024-06-16 15:55 | DVHPN2 ---
Progress Note Date Seen: Jun 16, 2024 Medical Necessity Reason Pt with a Central, PICC or Fol: No Subjective Patient reports: No new complaints Other Systems: Patient seen and examined by myself today in follow-up Patient examined hemodialysis, Objective vital signs Vital Sign Date Time Temp Pulse Resp B/P (MAP) Pulse Ox O2 Delivery O2 Flow Rate FiO2 06/16/24 14:15 98.1 82 17 138/91 (107) 93 98.1 06/16/24 08:00 Room Air* 0 21 Total Intake and Output 06/15/24 06/15/24 06/16/24 15:00 23:00 07:00 Intake Total 620 ml 50 ml Output Total 0 ml Balance 620 ml 50 ml medications Current Medications Medications Dose Ordered Sig/William Route Start Time Stop Time Status Last Admin Dose Admin Nitroglycerin 0.4 mg Q5MINP PRN SL 06/12/24 01:45 Morphine Sulfate 2 mg Q30M PRN IV 06/12/24 01:45 Meropenem 50 ml @ 17 mls/hr DAILY@2200 IV 06/12/24 22:00 06/14/24 21:33 17 MLS/HR Vancomycin HCl 0 ml @ 0 mls/hr UD IV 06/12/24 02:00 Levetiracetam 500 mg BID PO 06/12/24 10:00 06/15/24 22:11 500 MG Atorvastatin Calcium 40 mg HS PO 06/12/24 22:00 06/15/24 22:11 40 MG Losartan Potassium 50 mg DAILY PO 06/12/24 10:00 06/15/24 10:04 50 MG Amlodipine Besylate 2.5 mg DAILY PO 06/12/24 10:00 06/15/24 10:05 2.5 MG Diagnostic Test (Pha) 1 strip ACHS 06/12/24 07:00 06/16/24 11:04 1 STRIP Insulin Human Regular ACHS SC 06/12/24 07:00 06/15/24 11:12 2 UNITS Dextrose 50 ml UD PRN IV 06/12/24 02:00 Sevelamer HCl 800 mg TIDWM PO 06/12/24 08:00 06/15/24 22:11 800 MG Ondansetron HCl 4 mg Q4HPRN PRN IV 06/12/24 02:15 Patient Own Medication 2.5 mg BID PO 06/15/24 22:00 UNV Apixaban 2.5 mg BID PO 06/15/24 22:00 06/15/24 22:11 2.5 MG Guaifenesin/ Dextromethorphan 10 ml Q4HP PRN PO 06/16/24 03:45 06/16/24 04:13 10 ML Albumin Human 100 ml @ 100 mls/hr PRN PRN IV 06/16/24 14:15 Examination: LUNGS:Normal (Blood pressure stable), CVS:Normal, MSK:Normal laboratory and microbiology Laboratory Tests 06/15/24 10:36 06/14/24 05:13 Test 06/15/24 10:36 Range/Units Serum Glucose 133 H 74-106 mg/dL Microbiology Date/Time Source Procedure Growth Status 06/12/24 02:50 Blood Blood Culture - Preliminary NO GROWTH AFTER 72 HOURS OF INCUBATION. Resulted 06/12/24 02:15 Nose MRSA Screen - Final Complete Problem List/Assessment/Plan Problem List/Assessment/Plan ESRD on dialysis Sepsis/ bacteremia Hyperkalemia Recurrent CVA due to AFib AFib with RVR Hypertension Patient pulled out her IJ hemodialysis catheter Status post tunneled IJ hemodialysis catheter 06/16 Recommendations Continue with UF 2 L as tolerated Epogen 10,000 IV with HD Renal diet Resume home meds Neurology consult Cardiology consult Will continue to follow Plan discussed with: Patient My Orders My Orders Orders - CHARMAINE TINOCO MD Procedure Category Date Status Time Albumin 25% (Albutein) PHA 06/16/24 In Process 14:15 Dietary Evaluation Review Comments: Recommend Renal Standard 2 gNa 3K lo phos for dialysis pt. increased PO intakes, or/nepro nutrition supplement BID Expected Outcomes/Goals: rountine HD per instruction, improved appetite, increased PO protein intake free from sepsis or infections, healed wouonds. CHARMAINE TINOCO MD Jun 16, 2024 15:55
[2024-06-16] MEDS: SODIUM CHL 0.9% 1000 ML BAG XX ONE (17:00)
[2024-06-16] MEDS: EPOETIN ALFA-EPBX 10,000 UNIT/1ML VIAL SC ONE (20:44)
--- NOTE | 2024-06-16 22:05 | DVHPN2 ---
Progress Note - Dictate Date Seen: Jun 16, 2024 Medical Necessity Reason Pt with a Central, PICC or Fol: No Subjective Ms. Palma is a 64 years old female with a history of hypertension, diabetes, dyslipidemia, atrial fibrillation, end-stage renal failure on hemodialysis, chronic stroke, iron deficiency, the patient was transferred from [facility] on 06/12/2024 because the patient was need cardiac evaluation/goldie for the evidence of SBE. I have seen and examined the patient, I have talked to her nurse and sitter, she is awake, oriented to person, place, she was not cooperative with her nurse Home medication includes: Eliquis 2.5 mg b.i.d., fexofenadine, Lipitor 40 mg daily, mirtazapine 50 mg, no seizure medication CBC, 06/14/2024: HGB: 7.7 PT/INR/PTT, 06/12/2024: 12.3/1.18/38.9 BUN/CR, 06/14/2024: 54/7.52 HGB A1c, 06/14/2019 5:8.7 Liver function tests, 06/14/2024: Unremarkable Hepatitis panel, 05/1924: Negative TG/HDL/LDL/HDL, 05/2024: 67/92/42/31 Vitamin B12, 05/2024: 806 folic acid, 05/2024: 3.46 TSH 05/2024: 5.13 Carotid doctor, 06/14/2024: No hemodynamically significant stenosis noted in the right carotid system. Venous Doppler, 06/12/2024: Findings consistent with thrombosis of the right upper extremity AV graft which likely extends to the right axillary vein. Recommend vascular surgery consultation for further evaluation CT head 06/13/24: 1. Age-indeterminate left occipital infarcts with hemorrhagic transformation versus laminar necrosis. Recommend further evaluation with MRI. Small amount of hemorrhagic material in the occipital horn of the left lateral ventricle can not be ruled out. 2. Old infarcts are seen in the right frontoparietal lobes. 3. Moderate global cortical atrophy and chronic microvascular ischemic changes. 4. Atherosclerotic calcification of the intracranial arteries noted. 5. Small left mastoid effusion. MRI head, 06/13/2024: 1. Multifocal bilateral supratentorial acute ischemia with hemorrhagic transformation in the left occipital lobe. 2. Small bilateral mastoid vital signs Vital Sign Date Time Temp Pulse Resp B/P (MAP) Pulse Ox O2 Delivery O2 Flow Rate FiO2 06/16/24 21:00 97.8 75 19 139/89 (106) 98 97.8 06/16/24 08:00 Room Air* 0 21 Total Intake and Output 06/15/24 06/15/24 06/16/24 15:00 23:00 07:00 Intake Total 620 ml 50 ml Output Total 0 ml Balance 620 ml 50 ml medications Current Medications Medications Dose Ordered Sig/William Route Start Time Stop Time Status Last Admin Dose Admin Nitroglycerin 0.4 mg Q5MINP PRN SL 06/12/24 01:45 Morphine Sulfate 2 mg Q30M PRN IV 06/12/24 01:45 Meropenem 50 ml @ 17 mls/hr DAILY@2200 IV 06/12/24 22:00 06/16/24 20:48 17 MLS/HR Vancomycin HCl 0 ml @ 0 mls/hr UD IV 06/12/24 02:00 Levetiracetam 500 mg BID PO 06/12/24 10:00 06/16/24 20:47 500 MG Atorvastatin Calcium 40 mg HS PO 06/12/24 22:00 06/16/24 20:47 40 MG Losartan Potassium 50 mg DAILY PO 06/12/24 10:00 06/15/24 10:04 50 MG Amlodipine Besylate 2.5 mg DAILY PO 06/12/24 10:00 06/15/24 10:05 2.5 MG Diagnostic Test (Pha) 1 strip ACHS 06/12/24 07:00 06/16/24 21:03 1 STRIP Insulin Human Regular ACHS SC 06/12/24 07:00 06/15/24 11:12 2 UNITS Dextrose 50 ml UD PRN IV 06/12/24 02:00 Sevelamer HCl 800 mg TIDWM PO 06/12/24 08:00 06/15/24 22:11 800 MG Ondansetron HCl 4 mg Q4HPRN PRN IV 06/12/24 02:15 Patient Own Medication 2.5 mg BID PO 06/15/24 22:00 UNV Apixaban 2.5 mg BID PO 06/15/24 22:00 06/16/24 20:46 2.5 MG Guaifenesin/ Dextromethorphan 10 ml Q4HP PRN PO 06/16/24 03:45 06/16/24 04:13 10 ML Albumin Human 100 ml @ 100 mls/hr PRN PRN IV 06/16/24 14:15 06/16/24 14:50 100 MLS/HR objective General: the patient is well developed and nourished. No acute distress. MENTAL STATUS: Subjective SPEECH, LANGUAGE, HIGHER CORTICAL FUNCTION: no aphasia or dysathria. CRANIAL NERVES: Pupils are equal, round and reactive. EOMs full and conjugate. Facial sensation intact in all three divisions bilaterally. Mandibular strength intact. Possible left facial weakness of upper motor neuron pattern SENSATION: Sensation to touch and pinprick is normal. MOTOR: Normal tone in the upper and lower extremity. Normal muscle bulk. No fasciculations. No abnormal movements or posturing. Moves the arms and legs, REFLEXES: Deep tendon reflexes are symmetrical. No pathological reflexes. CEREBELLAR/COORDINATION: Deferred GAIT/STATION: deferred. laboratory and microbiology Laboratory Tests 06/15/24 10:36 06/14/24 05:13 Test 06/15/24 10:36 Range/Units Serum Glucose 133 H 74-106 mg/dL Problem List Multiple acute/subacute strokes secondary to AFib Chronic stroke secondary to AFib ? Vascular dementia Metabolic encephalopathy Sepsis DVT Rule out SBE Seizure in the [facility] Assessment/Plan Monitoring Supportive treatment Telemetry EEG GOLDIE IV antibiotics Eliquis 2.5 mg b.i.d. Lipitor 40 mg daily Keppra 500 mg b.i.d. Ativan for seizure breakthrough Hemodialysis Cardiology on case Nephrology are case More recommendation per clinical course This medical document was created using an electronic medical record system with c-[employer] dictation system. Although this document has been carefully reviewed, there may still be some phonetic and typographical errors. Prognosis poor Dietary Evaluation Review Comments: Recommend Renal Standard 2 gNa 3K lo phos for dialysis pt. increased PO intakes, or/nepro nutrition supplement BID Expected Outcomes/Goals: rountine HD per instruction, improved appetite, increased PO protein intake free from sepsis or infections, healed wouonds. Plan discussed with: Other AVA ORDAZ MD Jun 16, 2024 22:05
[2024-06-17] VITALS (8 sets, daily range): BP systolic 116–158; BP diastolic 76–91; PULSE 79–100; RESP 17–20; TEMP 97.9–99.1; O2SAT 90–98
[2024-06-17 07:05] LABS: Chloride 104 mmol/L (98-107); Potassium 4.4 mmol/L (3.5-5.1); Sodium 141 mmol/L (136-145)
[2024-06-17 07:06] LABS: Anion Gap 9 (5-15); Carbon Dioxide 28 mmol/L (20-31)
[2024-06-17 07:07] LABS: Calcium 8.4 mg/dL (8.7-10.4)
[2024-06-17 07:11] LABS: BUN/Creatinine Ratio 5.7 (10.0-20.0); Glucose 100 mg/dL (74-106)
[2024-06-17 07:12] LABS: Blood Urea Nitrogen 33 mg/dL (9-23)
--- NOTE | 2024-06-17 09:24 | DVHPN2 ---
Reviewed: Care Plan, H&P, Labs, Medications, Previous Orders, Radiology Changes from previous H/P or p: No Changes Objective Vitals Vital Signs Date Time Temp Pulse Resp B/P (MAP) Pulse Ox O2 Delivery O2 Flow Rate FiO2 06/17/24 09:01 147/87 06/17/24 08:34 98.2 96 20 90 98.2 06/16/24 20:00 Room Air* 0 21 Intake/Output Intake and Output 06/17/24 07:00 Intake Total 340 ml Balance 340 ml Intake Oral 340 ml # Bowel Movements 1 Medications Current Medications Medications Dose Ordered Sig/William Route Start Time Stop Time Status Last Admin Dose Admin Nitroglycerin 0.4 mg Q5MINP PRN SL 06/12/24 01:45 Morphine Sulfate 2 mg Q30M PRN IV 06/12/24 01:45 Meropenem 50 ml @ 17 mls/hr DAILY@2200 IV 06/12/24 22:00 06/16/24 20:48 17 MLS/HR Vancomycin HCl 0 ml @ 0 mls/hr UD IV 06/12/24 02:00 Levetiracetam 500 mg BID PO 06/12/24 10:00 06/17/24 09:00 500 MG Atorvastatin Calcium 40 mg HS PO 06/12/24 22:00 06/16/24 20:47 40 MG Losartan Potassium 50 mg DAILY PO 06/12/24 10:00 06/17/24 08:59 50 MG Amlodipine Besylate 2.5 mg DAILY PO 06/12/24 10:00 06/17/24 09:01 2.5 MG Diagnostic Test (Pha) 1 strip ACHS 06/12/24 07:00 06/17/24 05:21 1 STRIP Insulin Human Regular ACHS SC 06/12/24 07:00 06/15/24 11:12 2 UNITS Dextrose 50 ml UD PRN IV 06/12/24 02:00 Sevelamer HCl 800 mg TIDWM PO 06/12/24 08:00 06/17/24 09:00 800 MG Ondansetron HCl 4 mg Q4HPRN PRN IV 06/12/24 02:15 Patient Own Medication 2.5 mg BID PO 06/15/24 22:00 UNV Apixaban 2.5 mg BID PO 06/15/24 22:00 06/17/24 09:00 2.5 MG Guaifenesin/ Dextromethorphan 10 ml Q4HP PRN PO 06/16/24 03:45 06/16/24 04:13 10 ML Albumin Human 100 ml @ 100 mls/hr PRN PRN IV 06/16/24 14:15 06/16/24 14:50 100 MLS/HR Laboratory Results Laboratory Tests 06/14/24 05:13 06/17/24 06:16 Chemistry Test 06/17/24 06:16 Calcium Level 8.4 mg/dL (8.7-10.4) L Microbiology Microbiology Date/Time Source Procedure Growth Status 06/12/24 02:50 Blood Blood Culture - Final NO GROWTH AFTER 5 DAYS OF INCUBATION. Complete 06/12/24 02:15 Nose MRSA Screen - Final Complete Labs and/or images reviewed: Labs reviewed by me, Image(s) reviewed by me Assessment/Plan Assessment/Plan Patient was transferred from [facility] Sepsis/bacteremia rule out subacute endocarditis cardiology consult appreciated meropenem vancomycin, blood cultures negative, per Dr. Knox patient not a candidate for LOUIE at the present time because of MRI findings Paroxysmal atrial fibrillation, stage III, now NSR, on low-dose Eliquis Nonocclusive/superficial thrombus to the right upper extremity Acute on chronic anemia status post 2 unit PRBC/Hemoccult positive, hemoglobin stable at 7.9 Acute metabolic encephalopathy Subclinical hypothyroidism HX of CVA 2021 on antiplatelet therapy age-indeterminate left occipital infarct Slurry speech secondary to stroke Dyslipidemia Diabetes mellitus type 2 ESRD on HD nephrology consult appreciated, patient getting dialysis Recent hospital stay at [place] for three weeks for blocked right upper arm dialysis graft, was discharged home in [place] Left IJ dialysis access placed Time spent 65 minutes Advanced care planning time 20 minutes Patient is full code MRI brain shows Multifocal bilateral supratentorial acute ischemia with hemorrhagic transformation in the left occipital lobe.: Consult for Neurology Dr. Davidson appreciated Reviewed blood culture report from [facility]; It shows staph epidermidis which possibly is contamination Repeat blood cultures in [facility] on 06/12 24 neg, continue antibiotics for the present Son Jair [phone] at bedside The patient lives alone in [place] pet care worker Jolie [phone] from [facility] at bedside and feels the patient should go to detention facility Patient pulled out right IJ, tunneled dialysis cath placed by radiologist Plan discussed with: Patient Date of Service: Jun 17, 2024 Billing Provider: JOSÉ HAWLEY MD Common Visit Codes: [id number] INP/OBS CARE(HIGH) JOSÉ HAWLEY MD Jun 17, 2024 09:24
--- NOTE | 2024-06-17 14:33 | DVHPN2 ---
Progress Note Date Seen: Jun 17, 2024 Medical Necessity Reason Pt with a Central, PICC or Fol: No Subjective Patient reports: No new complaints Other Systems: Patient seen and examined by myself today in follow-up Objective vital signs Vital Sign Date Time Temp Pulse Resp B/P (MAP) Pulse Ox O2 Delivery O2 Flow Rate FiO2 06/17/24 13:00 99.1 94 19 116/76 (89) 93 99.1 06/16/24 20:00 Room Air* 0 21 Total Intake and Output 06/16/24 06/16/24 06/17/24 15:00 23:00 07:00 Intake Total 240 ml 100 ml Balance 240 ml 100 ml medications Current Medications Medications Dose Ordered Sig/William Route Start Time Stop Time Status Last Admin Dose Admin Nitroglycerin 0.4 mg Q5MINP PRN SL 06/12/24 01:45 Morphine Sulfate 2 mg Q30M PRN IV 06/12/24 01:45 Meropenem 50 ml @ 17 mls/hr DAILY@2200 IV 06/12/24 22:00 06/16/24 20:48 17 MLS/HR Vancomycin HCl 0 ml @ 0 mls/hr UD IV 06/12/24 02:00 Levetiracetam 500 mg BID PO 06/12/24 10:00 06/17/24 09:00 500 MG Atorvastatin Calcium 40 mg HS PO 06/12/24 22:00 06/16/24 20:47 40 MG Losartan Potassium 50 mg DAILY PO 06/12/24 10:00 06/17/24 08:59 50 MG Amlodipine Besylate 2.5 mg DAILY PO 06/12/24 10:00 06/17/24 09:01 2.5 MG Diagnostic Test (Pha) 1 strip ACHS 06/12/24 07:00 06/17/24 11:12 1 STRIP Insulin Human Regular ACHS SC 06/12/24 07:00 06/17/24 11:22 2 UNITS Dextrose 50 ml UD PRN IV 06/12/24 02:00 Sevelamer HCl 800 mg TIDWM PO 06/12/24 08:00 06/17/24 09:00 800 MG Ondansetron HCl 4 mg Q4HPRN PRN IV 06/12/24 02:15 Patient Own Medication 2.5 mg BID PO 06/15/24 22:00 UNV Apixaban 2.5 mg BID PO 06/15/24 22:00 06/17/24 09:00 2.5 MG Guaifenesin/ Dextromethorphan 10 ml Q4HP PRN PO 06/16/24 03:45 06/16/24 04:13 10 ML Albumin Human 100 ml @ 100 mls/hr PRN PRN IV 06/16/24 14:15 06/16/24 14:50 100 MLS/HR Examination: LUNGS:Normal, CVS:Normal, MSK:Normal laboratory and microbiology Laboratory Tests 06/17/24 06:16 06/14/24 05:13 Test 06/17/24 06:16 Range/Units Serum Glucose 100 74-106 mg/dL Microbiology Date/Time Source Procedure Growth Status 06/12/24 02:50 Blood Blood Culture - Final NO GROWTH AFTER 5 DAYS OF INCUBATION. Complete 06/12/24 02:15 Nose MRSA Screen - Final Complete Problem List/Assessment/Plan Problem List/Assessment/Plan ESRD on dialysis Sepsis/ bacteremia Hyperkalemia, resume Recurrent CVA due to AFib AFib with RVR Hypertension Hypophosphatemia Patient pulled out her IJ hemodialysis catheter Status post tunneled IJ hemodialysis catheter 06/16 Recommendations Hemodialysis tomorrow Epogen 10,000 IV with HD Renal diet Renvela 1600 mg p.o. t.i.d. with meals Resume home meds Will continue to follow Plan discussed with: Patient Dietary Evaluation Review Comments: Recommend Renal Standard 2 gNa 3K lo phos for dialysis pt. increased PO intakes, or/nepro nutrition supplement BID Expected Outcomes/Goals: rountine HD per instruction, improved appetite, increased PO protein intake free from sepsis or infections, healed wouonds. CHARMAINE TINOCO MD Jun 17, 2024 14:33
[2024-06-17] MEDS: SEVELAMER 800 MG TAB PO SCH (15:28)
[2024-06-17 19:10] LABS: Hematocrit 24.8 % (36.0-46.0)
[2024-06-18] VITALS (8 sets, daily range): BP systolic 131–159; BP diastolic 77–97; PULSE 80–93; RESP 20; TEMP 97.6–99.3; O2SAT 84–97
[2024-06-18] MEDS ORDERED: SODIUM CHL 0.9% 1000 ML BAG XX ONE (07:00)
--- NOTE | 2024-06-18 08:32 | DVHPN2 ---
Reviewed: Care Plan, H&P, Labs, Medications, Previous Orders, Radiology Changes from previous H/P or p: No Changes Objective Vitals Vital Signs Date Time Temp Pulse Resp B/P (MAP) Pulse Ox O2 Delivery O2 Flow Rate FiO2 06/18/24 04:45 97.9 88 20 159/92 (114) 95 97.9 06/17/24 20:00 Nasal Cannula* 2 28 Intake/Output Intake and Output 06/18/24 07:00 Intake Total 690 ml Balance 690 ml Intake Oral 640 ml IV Total 50 ml # Voids 2 # Bowel Movements 3 Medications Current Medications Medications Dose Ordered Sig/William Route Start Time Stop Time Status Last Admin Dose Admin Nitroglycerin 0.4 mg Q5MINP PRN SL 06/12/24 01:45 Morphine Sulfate 2 mg Q30M PRN IV 06/12/24 01:45 Meropenem 50 ml @ 17 mls/hr DAILY@2200 IV 06/12/24 22:00 06/17/24 22:00 17 MLS/HR Vancomycin HCl 0 ml @ 0 mls/hr UD IV 06/12/24 02:00 Levetiracetam 500 mg BID PO 06/12/24 10:00 06/17/24 21:52 500 MG Atorvastatin Calcium 40 mg HS PO 06/12/24 22:00 06/17/24 21:51 40 MG Losartan Potassium 50 mg DAILY PO 06/12/24 10:00 06/17/24 08:59 50 MG Diagnostic Test (Pha) 1 strip ACHS 06/12/24 07:00 06/18/24 06:20 1 STRIP Insulin Human Regular ACHS SC 06/12/24 07:00 06/17/24 11:22 2 UNITS Dextrose 50 ml UD PRN IV 06/12/24 02:00 Ondansetron HCl 4 mg Q4HPRN PRN IV 06/12/24 02:15 Patient Own Medication 2.5 mg BID PO 06/15/24 22:00 UNV Apixaban 2.5 mg BID PO 06/15/24 22:00 06/17/24 21:50 2.5 MG Guaifenesin/ Dextromethorphan 10 ml Q4HP PRN PO 06/16/24 03:45 06/16/24 04:13 10 ML Albumin Human 100 ml @ 100 mls/hr PRN PRN IV 06/16/24 14:15 06/16/24 14:50 100 MLS/HR Amlodipine Besylate 2.5 mg DAILY PO 06/18/24 10:00 Sevelamer HCl 1,600 mg TIDWM PO 06/17/24 14:45 06/17/24 17:54 1,600 MG Laboratory Results Laboratory Tests 06/14/24 05:13 06/17/24 06:16 06/17/24 18:51 Microbiology Microbiology Date/Time Source Procedure Growth Status 06/12/24 02:50 Blood Blood Culture - Final NO GROWTH AFTER 5 DAYS OF INCUBATION. Complete 06/12/24 02:15 Nose MRSA Screen - Final Complete Labs and/or images reviewed: Labs reviewed by me, Image(s) reviewed by me Assessment/Plan Assessment/Plan Patient was transferred from [facility] Sepsis/bacteremia rule out subacute endocarditis cardiology consult appreciated treated with meropenem and vancomycin, repeat blood cultures negative, LOUIE not done because of MRI findings of stroke, cardiology consult by Dr. Knox Paroxysmal atrial fibrillation, stage III, now NSR, on low-dose Eliquis Nonocclusive/superficial thrombus to the right upper extremity Acute on chronic anemia status post 2 unit PRBC/Hemoccult positive, hemoglobin stable at 7.9 Acute metabolic encephalopathy Subclinical hypothyroidism HX of CVA 2021 on antiplatelet therapy age-indeterminate left occipital infarct Slurry speech secondary to stroke Dyslipidemia Diabetes mellitus type 2 ESRD on HD nephrology consult appreciated, patient getting dialysis Recent hospital stay at [place] for three weeks for blocked right upper arm dialysis graft, was discharged home in [place] Left IJ dialysis access placed Time spent 65 minutes Advanced care planning time 20 minutes Patient is full code MRI brain shows Multifocal bilateral supratentorial acute ischemia with hemorrhagic transformation in the left occipital lobe.: Consult for Neurology Dr. Davidson appreciated Repeat blood cultures negative: DC vancomycin and meropenem package worker Jolie [phone] from [facility] at bedside and feels the patient should go to shelter facility Plan discussed with: Patient Date of Service: Jun 18, 2024 Billing Provider: JOSÉ HAWLEY MD Common Visit Codes: [id number] INP/OBS CARE(HIGH) JOSÉ HAWLEY MD Jun 18, 2024 08:32
--- NOTE | 2024-06-18 08:41 | DVHDS2 ---
Discharge Summary Date of Admission Jun 12, 2024 at 00:30 Date of Discharge: Jun 18, 2024 Admitting Diagnosis Sepsis secondary to bacteremia Wounds: None Labs/Diagnostic Data: Laboratory Results Test 06/18/24 06:17 06/18/24 06:03 06/17/24 18:51 06/17/24 06:16 POC Glucose 91 mg/dl (70-106) Random Vancomycin Level 22.6 ug/mL (5-10) Hemoglobin 8.0 g/dL (12.2-16.2) Hematocrit 24.8 % (36.0-46.0) Sodium Level 141 mmol/L (136-145) Potassium Level 4.4 mmol/L (3.5-5.1) Chloride Level 104 mmol/L (98-107) Carbon Dioxide Level 28 mmol/L (20-31) Anion Gap 9 (5-15) Blood Urea Nitrogen 33 mg/dL (9-23) Creatinine 5.82 mg/dL (0.550-1.02) Glomerular Filtration Rate Calc 8 mL/min (>90) BUN/Creatinine Ratio 5.7 (10.0-20.0) Serum Glucose 100 mg/dL (74-106) Calcium Level 8.4 mg/dL (8.7-10.4) Test 06/14/24 05:13 06/13/24 05:06 06/12/24 07:00 06/12/24 04:00 White Blood Count 6.8 10^3/uL (4.4-10.8) Red Blood Count 2.59 10^6/uL (4.0-5.20) Mean Corpuscular Volume 90.9 fL (80.0-100.0) Mean Corpuscular Hemoglobin 29.8 pg (28.0-32.0) Mean Corpuscular Hemoglobin Concent 32.7 g/dL (32.0-36.0) Red Cell Distribution Width 16.7 % (11.8-14.3) Platelet Count 151 10^3/uL (140-450) Mean Platelet Volume 7.9 fL (6.9-10.8) Neutrophils (%) (Auto) 73.4 % (37.0-80.0) Lymphocytes (%) (Auto) 16.8 % (10.0-50.0) Monocytes (%) (Auto) 6.2 % (0.0-12.0) Eosinophils (%) (Auto) 2.7 % (0.0-7.0) Basophils (%) (Auto) 0.9 % (0.0-2.0) Neutrophils # (Auto) 5.0 10 ^3/uL (1.6-8.6) Lymphocytes # (Auto) 1.1 10 ^3/uL (0.4-5.4) Monocytes # (Auto) 0.4 10 ^3/uL (0-1.3) Eosinophils # (Auto) 0.2 10 ^3/uL (0-0.8) Basophils # (Auto) 0.1 10 ^3/uL (0-0.2) Nucleated Red Blood Cells 0.1 % Total Bilirubin 0.3 mg/dL (0.2-1.0) Aspartate Amino Transferase (AST) 12 U/L (13-40) Alanine Aminotransferase (ALT) < 9 U/L (7-40) Alkaline Phosphatase 97 U/L (46-116) Total Protein 5.9 g/dL (5.7-8.2) Albumin 2.4 g/dL (3.2-4.8) Triglycerides Level 67 mg/dL (< 150) Cholesterol Level 92 mg/dL (< 200) LDL Cholesterol 42 mg/dL (< 100) HDL Cholesterol 31 mg/dL (40-59) Vitamin B12 Level 806 pg/mL (211-911) Folic Acid 3.46 ng/mL (>5.38) Thyroid Stimulating Hormone (TSH) 5.13 uIU/mL (0.55-4.78) Free Thyroxine (T4) Calculated 0.89 ng/dL (0.89-1.76) Hepatitis A IgM Antibody Negative Hepatitis B Surface Antigen Negative (Negative) Hepatitis B Core IgM Antibody Negative (Negative) Hepatitis C Antibody Negative (Negative) Troponin I High Sensitivity 7 ng/L (</=34) Influenza Type A Antigen Negative (Negative) Influenza Type B Antigen Negative (Negative) SARS-CoV-2 Antigen (Rapid) Negative (NEGATIVE) Test 06/12/24 02:50 Prothrombin Time 12.3 sec (9.3-11.8) Prothrombin Time INR 1.18 (0.9-1.15) Activated Partial Thromboplast Time 38.9 SEC (24.5-34.5) Hemoglobin A1c 5.6 % A1C (<5.7) Phosphorus Level 6.2 mg/dL (2.4-5.1) Magnesium Level 2.6 mg/dL (1.6-2.6) Iron Level 56 ug/dL (50-170) Total Iron Binding Capacity 125 ug/dL (250-425) Percent Iron Saturation 44.8 % (15-50) Ammonia 15 umol/L (11-32) B-Type Natriuretic Peptide 288.82 pg/mL (0-100) Lipase 22 U/L (12-53) Free Triiodothyronine (T3) pg/mL 1.53 pg/mL (2.3-4.2) Other Laboratory Tests 06/17/24 18:51 06/17/24 06:16 06/14/24 05:13 Brief Hx & Hospital Course: 64-year-old female with history of paroxysmal atrial fibrillation superficial thrombus of the right upper extremity anemia of chronic disease hypothyroidism history of CVA 2021 on antiplatelet therapy dyslipidemia diabetes ESRD on hemodialysis transferred from [facility] for bacteremia and sepsis patient was treated with the vancomycin and meropenem repeat blood cultures negative she received a total of seven days of IV antibiotics and antibiotic discontinued after the blood cultures came negative patient had an MRI of the brain which showed age-indeterminate left occipital infarct patient had slurry speech secondary to stroke seen by Neurology Dr. Davidson patient also seen by operations examiner possible LOUIE for recurrent embolic thrombi was postponed because of MRI findings of the stroke. Patient is able to eat alert and awake oriented x3 at the time of discharge. Patient being discharged to [facility] facility for [facility]hab and for dialysis general condition poor but stable at the time of discharge She has a caregiver from [facility]. Consults/Reason for consult Nephrology Cardiology Operations or Procedures Hemodialysis Condition at Discharge: Poor Final Diagnosis/Problems List Patient was transferred from [facility] Sepsis/bacteremia rule out subacute endocarditis cardiology consult appreciated treated with meropenem and vancomycin, repeat blood cultures negative, LOUIE not done because of MRI findings of stroke, cardiology consult by Dr. Knox Paroxysmal atrial fibrillation, stage III, now NSR, on low-dose Eliquis Nonocclusive/superficial thrombus to the right upper extremity Acute on chronic anemia status post 2 unit PRBC/Hemoccult positive, hemoglobin stable at 7.9 Acute metabolic encephalopathy Subclinical hypothyroidism HX of CVA 2022 on antiplatelet therapy age-indeterminate left occipital infarct Slurry speech secondary to stroke Dyslipidemia Diabetes mellitus type 2 ESRD on HD nephrology consult appreciated, patient getting dialysis Recent hospital stay at [facility] for three weeks for blocked right upper arm dialysis graft, was discharged home in [facility] IJ dialysis access placed Discharge Disposition: [facility] Facility Discharge Instruct/Medications Diet: Renal Activity: Light activity Follow Up/Referral: Follow up with the shelter Dr Bonilla 3 times a week Medications: see list 35 (Time taken for discharge summary 35 minutes) Discharge Statement: "Patient was advised to return to the ER or call 911 if any headaches, dizziness, shortness of breath, chest pain, abdominal pain, bleeding, fevers, or worsening of medical condition. Patient was counseled about treatment plan, medications, possible side effects, patientverbalized understanding. All questions were answered to the best of my ability. This discharge took greater then 30 minutes in planning, reviewing documentation, counseling the patient, and discussing with other team members." ASSESSMENT ASSESSMENT Hospital Course Marginal improvement Assessment Patient was transferred from [facility] Sepsis/bacteremia rule out subacute endocarditis cardiology consult appreciated treated with meropenem and vancomycin, repeat blood cultures negative, LOUIE not done because of MRI findings of stroke, cardiology consult by Dr. Knox Paroxysmal atrial fibrillation, stage III, now NSR, on low-dose Eliquis Nonocclusive/superficial thrombus to the right upper extremity Acute on chronic anemia status post 2 unit PRBC/Hemoccult positive, hemoglobin stable at 7.9 Acute metabolic encephalopathy Subclinical hypothyroidism HX of CVA 2021 on antiplatelet therapy age-indeterminate left occipital infarct Slurry speech secondary to stroke Dyslipidemia Diabetes mellitus type 2 ESRD on HD nephrology consult appreciated, patient getting dialysis Recent hospital stay at [facility] for three weeks for blocked right upper arm dialysis graft, was discharged home in [place] Left IJ dialysis access placed Date of Service: Jun 18, 2024 Billing Provider: JOSÉ HAWLEY MD Common Visit Codes: [id number] DISCH DAY >30min JOSÉ HAWLEY MD Jun 18, 2024 08:41
[2024-06-18] MEDS: amLODIPine BESYLATE 5 MG TAB PO SCH (10:00)
--- NOTE | 2024-06-18 12:00 | DVHPN2 ---
Progress Note Date Seen: Jun 18, 2024 Medical Necessity Reason Pt with a Central, PICC or Fol: No Subjective Patient reports: No new complaints Other Systems: Patient seen and examined by myself today in follow-up Patient examined hemodialysis, blood pressure stable Objective vital signs Vital Sign Date Time Temp Pulse Resp B/P (MAP) Pulse Ox O2 Delivery O2 Flow Rate FiO2 06/18/24 10:15 131/78 06/18/24 09:00 98.6 83 20 97 98.6 06/17/24 20:00 Nasal Cannula* 2 28 Total Intake and Output 06/17/24 06/17/24 06/18/24 15:00 23:00 07:00 Intake Total 240 ml 450 ml Balance 240 ml 450 ml medications Current Medications Medications Dose Ordered Sig/William Route Start Time Stop Time Status Last Admin Dose Admin Nitroglycerin 0.4 mg Q5MINP PRN SL 06/12/24 01:45 Morphine Sulfate 2 mg Q30M PRN IV 06/12/24 01:45 Levetiracetam 500 mg BID PO 06/12/24 10:00 06/18/24 10:15 500 MG Atorvastatin Calcium 40 mg HS PO 06/12/24 22:00 06/17/24 21:51 40 MG Losartan Potassium 50 mg DAILY PO 06/12/24 10:00 06/18/24 10:15 50 MG Diagnostic Test (Pha) 1 strip ACHS 06/12/24 07:00 06/18/24 11:31 1 STRIP Insulin Human Regular ACHS SC 06/12/24 07:00 06/18/24 11:43 2 UNITS Dextrose 50 ml UD PRN IV 06/12/24 02:00 Ondansetron HCl 4 mg Q4HPRN PRN IV 06/12/24 02:15 Patient Own Medication 2.5 mg BID PO 06/15/24 22:00 UNV Apixaban 2.5 mg BID PO 06/15/24 22:00 06/17/24 21:50 2.5 MG Guaifenesin/ Dextromethorphan 10 ml Q4HP PRN PO 06/16/24 03:45 06/18/24 08:29 10 ML Albumin Human 100 ml @ 100 mls/hr PRN PRN IV 06/16/24 14:15 06/16/24 14:50 100 MLS/HR Amlodipine Besylate 2.5 mg DAILY PO 06/18/24 10:00 Sevelamer HCl 1,600 mg TIDWM PO 06/17/24 14:45 06/18/24 11:44 1,600 MG laboratory and microbiology Laboratory Tests 06/17/24 18:51 06/17/24 06:16 06/14/24 05:13 Test 06/17/24 06:16 Range/Units Serum Glucose 100 74-106 mg/dL Microbiology Date/Time Source Procedure Growth Status 06/12/24 02:50 Blood Blood Culture - Final NO GROWTH AFTER 5 DAYS OF INCUBATION. 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 t.i.d. with meals Resume home meds Will continue to follow Plan discussed with: Patient My Orders My Orders Orders - CHARMAINE TINOCO MD Procedure Category Date Status Time Sevelamer (Renagel) PHA 06/17/24 In Process 14:45 Hemodialysis Orders ORDERS 06/18/24 Transmitted 07:00 Dialysis Nursing WHIT 06/18/24 In Process Message 07:00 Document Fluid Input WHIT 06/18/24 In Process And Outpu 07:00 Epoetin Dario-Epbx PHA 06/18/24 In Process (Retacrit) 21:00 Amlodipine Tablet PHA 06/18/24 In Process (Norvasc Tablet) 10:00 Dietary Evaluation Review Comments: Recommend Renal Standard 2 gNa 3K lo phos for dialysis pt. increased PO intakes, or/nepro nutrition supplement BID Expected Outcomes/Goals: rountine HD per instruction, improved appetite, increased PO protein intake free from sepsis or infections, healed wouonds. CHARMAINE TINOCO MD Jun 18, 2024 12:00
--- NOTE | 2024-06-18 20:19 | DVHPN2 ---
Progress Note - Dictate Date Seen: Jun 18, 2024 Medical Necessity Reason Pt with a Central, PICC or Fol: No Subjective Ms. Palma is a 64 years old female with a history of hypertension, diabetes, dyslipidemia, atrial fibrillation, end-stage renal failure on hemodialysis, chronic stroke, iron deficiency, the patient was transferred from [facility] on 06/12/2024 because the patient was need cardiac evaluation/goldie for the evidence of SBE. I have seen and examined the patient, I have talked to her nurse and sitter, going through hemodialysis. she is awake, oriented to person, place, she is cooperative with me, but is not always cooperative with our medical staffs Home medication includes: Eliquis 2.5 mg b.i.d., fexofenadine, Lipitor 40 mg daily, mirtazapine 50 mg, no seizure medication CBC, 06/14/2024: HGB: 7.7 PT/INR/PTT, 06/12/2024: 12.3/1.18/38.9 BUN/CR, 06/14/2024: 54/7.52 HGB A1c, 06/14/2019 5:8.7 Liver function tests, 06/14/2024: Unremarkable Hepatitis panel, 05/1924: Negative TG/HDL/LDL/HDL, 05/2024: 67/92/42/31 Vitamin B12, 05/2024: 806 folic acid, 05/2024: 3.46 TSH 05/2024: 5.13 Carotid doctor, 06/14/2024: No hemodynamically significant stenosis noted in the right carotid system. Venous Doppler, 06/12/2024: Findings consistent with thrombosis of the right upper extremity AV graft which likely extends to the right axillary vein. Recommend vascular surgery consultation for further evaluation CT head 06/13/24: 1. Age-indeterminate left occipital infarcts with hemorrhagic transformation versus laminar necrosis. Recommend further evaluation with MRI. Small amount of hemorrhagic material in the occipital horn of the left lateral ventricle can not be ruled out. 2. Old infarcts are seen in the right frontoparietal lobes. 3. Moderate global cortical atrophy and chronic microvascular ischemic changes. 4. Atherosclerotic calcification of the intracranial arteries noted. 5. Small left mastoid effusion. MRI head, 06/13/2024: 1. Multifocal bilateral supratentorial acute ischemia with hemorrhagic transformation in the left occipital lobe. 2. Small bilateral mastoid vital signs Vital Sign Date Time Temp Pulse Resp B/P (MAP) Pulse Ox O2 Delivery O2 Flow Rate FiO2 06/18/24 18:19 98.6 83 20 97 06/18/24 17:00 151/77 (101) 06/18/24 08:00 Nasal Cannula* 2 28 Total Intake and Output 06/17/24 06/17/24 06/18/24 15:00 23:00 07:00 Intake Total 240 ml 450 ml Balance 240 ml 450 ml medications Current Medications Medications Dose Ordered Sig/William Route Start Time Stop Time Status Last Admin Dose Admin Nitroglycerin 0.4 mg Q5MINP PRN SL 06/12/24 01:45 Morphine Sulfate 2 mg Q30M PRN IV 06/12/24 01:45 Levetiracetam 500 mg BID PO 06/12/24 10:00 06/18/24 10:15 500 MG Atorvastatin Calcium 40 mg HS PO 06/12/24 22:00 06/17/24 21:51 40 MG Losartan Potassium 50 mg DAILY PO 06/12/24 10:00 06/18/24 10:15 50 MG Diagnostic Test (Pha) 1 strip ACHS 06/12/24 07:00 06/18/24 17:27 1 STRIP Insulin Human Regular ACHS SC 06/12/24 07:00 06/18/24 11:43 2 UNITS Dextrose 50 ml UD PRN IV 06/12/24 02:00 Ondansetron HCl 4 mg Q4HPRN PRN IV 06/12/24 02:15 Patient Own Medication 2.5 mg BID PO 06/15/24 22:00 UNV Apixaban 2.5 mg BID PO 06/15/24 22:00 06/17/24 21:50 2.5 MG Guaifenesin/ Dextromethorphan 10 ml Q4HP PRN PO 06/16/24 03:45 06/18/24 08:29 10 ML Albumin Human 100 ml @ 100 mls/hr PRN PRN IV 06/16/24 14:15 06/16/24 14:50 100 MLS/HR Amlodipine Besylate 2.5 mg DAILY PO 06/18/24 10:00 Sevelamer HCl 1,600 mg TIDWM PO 06/17/24 14:45 06/18/24 17:55 1,600 MG objective General: the patient is well developed and nourished. No acute distress. MENTAL STATUS: Subjective SPEECH, LANGUAGE, HIGHER CORTICAL FUNCTION: no aphasia or dysathria. CRANIAL NERVES: Pupils are equal, round and reactive. EOMs full and conjugate. Facial sensation intact in all three divisions bilaterally. Mandibular strength intact. Possible left facial weakness of upper motor neuron pattern SENSATION: Sensation to touch and pinprick is normal. MOTOR: Normal tone in the upper and lower extremity. Normal muscle bulk. No fasciculations. No abnormal movements or posturing. Moves the arms and legs, REFLEXES: Deep tendon reflexes are symmetrical. No pathological reflexes. CEREBELLAR/COORDINATION: Deferred GAIT/STATION: deferred. laboratory and microbiology Laboratory Tests 06/17/24 18:51 06/17/24 06:16 06/14/24 05:13 Test 06/17/24 06:16 Range/Units Serum Glucose 100 74-106 mg/dL Problem List Multiple acute/subacute strokes secondary to AFib Chronic stroke secondary to AFib ? Vascular dementia Metabolic encephalopathy Sepsis DVT Rule out SBE Seizure in the [facility] End-stage renal failure Assessment/Plan Monitoring Supportive treatment Telemetry EEG GOLDIE IV antibiotics Eliquis 2.5 mg b.i.d. Lipitor 40 mg daily Keppra 500 mg b.i.d. Ativan for seizure breakthrough Hemodialysis Cardiology on case Nephrology are case/hemodialysis More recommendation per clinical course This medical document was created using an electronic medical record system with [employer] dictation system. Although this document has been carefully reviewed, there may still be some phonetic and typographical errors. Prognosis poor Dietary Evaluation Review Comments: Recommend Renal Standard 2 gNa 3K lo phos for dialysis pt. increased PO intakes, or/nepro nutrition supplement BID Expected Outcomes/Goals: rountine HD per instruction, improved appetite, increased PO protein intake free from sepsis or infections, healed wouonds. Plan discussed with: Other AVA ORDAZ MD Jun 18, 2024 20:19
[2024-06-18] MEDS ORDERED: EPOETIN ALFA-EPBX 10,000 UNIT/1ML VIAL SC ONE (21:00)
--- NOTE | 2024-06-18 22:26 | DVHEEG2 ---
Neurology EEG Procedural Note Procedural Note EXAM DATE: 06/15/2024 REFERRING DOCTOR: Dr. Ordaz TECHNIQUE: Eighteen channels of EEG, 2 channels of EOG, and 1 channel of EKG were recorded using the [employer] 10/20 system. CLINICAL DATA: The patient was referred for an EEG evaluation for the evidence of seizure disorder. MEDICATIONS: See chart BACKGROUND ACTIVITY: While the patient was awake, the background activity consisted of fairly regulated 6-7 Hz rhythmic waveforms, symmetrically distributed over both posterior quadrants and was reactive to external stimuli, intermixed with this was diffuse low amplitude theta activity over both hemis pheres. ACTIVATION: Hyperventilation: Not done Photic Stimulation: Not done Sleep: Not seen IMPRESSION: This is a mildly abnormal EEG, this EEG seen in mild cerebral dysfunction due to metabolic/hypoxic encephalopathy or medication effects, please correlate clinically The EKG channel showed an irregular heart rate of 84/minute[place] [address] AVA ORDAZ MD Jun 18, 2024 22:26
== END 2024-06-18 20:52 | DRG 720 ==
LOC: CENTRAL 06-12 00:30 → TELE-CENTR 06-12 01:48
PROVIDERS: ADMIT Family Medicine; ATTEND Family Medicine
PROC: 5A1D70Z Performance of Urinary Filtration, Intermittent, Less than 6 Hours Per Day (ICD-10-PCS; principal; 2024-06-13)
PROC: 5A1D70Z Performance of Urinary Filtration, Intermittent, Less than 6 Hours Per Day (ICD-10-PCS; 2024-06-14)
PROC: 5A1D70Z Performance of Urinary Filtration, Intermittent, Less than 6 Hours Per Day (ICD-10-PCS; 2024-06-16)
PROC: 0JH63XZ Insertion of Tunneled Vascular Access Device into Chest Subcutaneous Tissue and Fascia, Percutaneous Approach (ICD-10-PCS; 2024-06-16)
PROC: 02HV33Z Insertion of Infusion Device into Superior Vena Cava, Percutaneous Approach (ICD-10-PCS; 2024-06-16)
PROC: B5181ZA Fluoroscopy of Superior Vena Cava using Low Osmolar Contrast, Guidance (ICD-10-PCS; 2024-06-16)
PROC: B548ZZA Ultrasonography of Superior Vena Cava, Guidance (ICD-10-PCS; 2024-06-16)
DX: A41.9 Sepsis, unspecified organism (principal); I33.9 Acute and subacute endocarditis, unspecified; G93.41 Metabolic encephalopathy; I12.0 Hypertensive chronic kidney disease with stage 5 chronic kidney disease or end stage renal disease; D68.9 Coagulation defect, unspecified; I82.621 Acute embolism and thrombosis of deep veins of right upper extremity; N18.6 End stage renal disease; E11.22 Type 2 diabetes mellitus with diabetic chronic kidney disease; D63.8 Anemia in other chronic diseases classified elsewhere; E83.39 Other disorders of phosphorus metabolism; Z20.822 Contact with and (suspected) exposure to COVID-19; E87.5 Hyperkalemia; E03.8 Other specified hypothyroidism; B95.8 Unspecified staphylococcus as the cause of diseases classified elsewhere; R56.9 Unspecified convulsions; I48.0 Paroxysmal atrial fibrillation; E78.5 Hyperlipidemia, unspecified; F17.200 Nicotine dependence, unspecified, uncomplicated; Z86.73 Personal history of transient ischemic attack (TIA), and cerebral infarction without residual deficits; Z99.2 Dependence on renal dialysis; Z79.01 Long term (current) use of anticoagulants; Z79.899 Other long term (current) drug therapy; Z83.3 Family history of diabetes mellitus; Z82.49 Family history of ischemic heart disease and other diseases of the circulatory system
CPT/HCPCS: 36415; 36558; 70450; 70551; 71045; 77001; 80048; 80053; 80061; 80074; 80202; 82140; 82607; 82746; 82962; 83036; 83540; 83550; 83690; 83735; 83880; 84100; 84439; 84443; 84481; 84484; 85014; 85018; 85025; 85610; 85730; 86850; 86900; 86901; 87040; 87081; 87426; 87804; 90935; 93005; 93306; 93886; 93970; 95819; 97110; 97116; 97163; 97530; 99152; C1894; G0378; J1642; J1815; J2185; J2250; P9047